=== PATIENT | male | born 1945 | race Caucasian/White ===

== ENCOUNTER 2025-09-04 15:33 | Inpatient (IN) ==
[2025-09-04 16:49] LABS: Hematocrit (blood only) 41.5 % (42.0-52.0); Hemoglobin 13.9 g/dL (14.0-18.0); Immature Granulocytes # (auto) 0.05 K/uL (0.01-0.20); Immature Granulocytes % (auto) 0.4 %; Mean Corpuscular Hemoglobin 29.1 pg (25.0-34.0); Mean Corpuscular Volume 86.8 fL (80.0-100.0); Platelet Count 475 K/uL (130-400); RDW Standard Deviation 42.5 fL (36.4-46.3); Red Blood Count 4.78 M/uL (4.70-6.10); White Blood Count 12.16 K/ul (4.8-10.8)
[2025-09-04] MEDS: SODIUM CHLORIDE 0.9% 1,000 ML IV ONE ×2 (17:02→22:00)
[2025-09-04 17:06] LABS: Alanine Aminotransferase 131.0 U/L (7-52); Albumin Globulin Ratio 1.0 (0.9-2); Albumin Level 3.6 gm/dl (3.4-5.0); Alkaline Phosphatase 335.0 U/L (34-104); Anion Gap 9.0 (3-11); Bilirubin,Total 0.6 mg/dl (0.2-1.0); Blood Urea Nitrogen 27.0 mg/dl (6-23); Calcium 9.4 mg/dl (8.6-10.3); Carbon Dioxide 25.0 mmol/L (21-32); Chloride 103.0 mmol/L (98-107); Creatinine Clr Calc Pharmacy 71.9 ml/min; Globulin 3.7 gm/dl (2.5-4.0); Glucose 134.0 mg/dl (70-99(Fasting)); Magnesium 2.0 mg/dl (1.7-2.4); Potassium 4.6 mmol/L (3.5-5.1); Sodium 137.0 mmol/L (136-145); Total Protein 7.3 gm/dl (6.0-8.3)
[2025-09-04 17:32] LABS: Influenza A virus by PCR Negative (Neg); Influenza B virus by PCR Negative (Neg); SARS CoV2 RNA(COVID-19) Ceph NEGATIVE (Negative)
--- NOTE | 2025-09-04 17:34 | XRay Report ---
Chest radiograph, one view History: Bronchitis Comparison: None Findings: Single AP view of the chest performed. No focal consolidation or pleural effusion. No pneumothorax. The cardiomediastinal silhouette is within normal limits. Normal pulmonary vascularity. No evidence for lymphadenopathy. No visualized bony or soft tissue abnormality. Impression: Normal chest radiograph Electronically signed by Nathanael Esparza 09-04-2025 5:33 PM
[2025-09-04] MEDS: ACETAMINOPHEN 1,000 MG/100 ML VIAL IV STA (17:48)
[2025-09-04] MEDS: HEPARIN SOD (PORCINE) 1000 UNIT/ML IV ONE (19:24)
[2025-09-04] MEDS: STAT IV Infusion **Titration per Protocol STA (19:24)
--- NOTE | 2025-09-04 19:29 | History & Physical Report ---
Date of Service September 04, 2025 Assessment & Plan (1) Atrial flutter: Plan: Assessment and plan below following discussion of case with ED provider and reviewing patient history/pertinent normal/abnormal diagnostic test results. Rapid atrial flutter New onset Possibly secondary to sepsis from complicated bronchitis Patient converted to NSR following initial intervention at the ER hx CAD status post stent hypertension, stable hyperlipidemia, on statin Rx Transaminitis, patient without abdominal pain complaints, denies recent EtOH intake Hyperglycemia rule out DM GERD, on PPI ongoing tobacco abuse Admit to PCU Beta-britton for rate control TTE, Cardiology consult re: new onset atrial flutter (ED provider already in touch with Dr. Chowdary who initially recommended starting beta-britton for rate control and initiating IV heparin for anticoagulation.) CS, doxycycline in place of Augmentin for complicated bronchitis/possible atypical pneumonia Consider CT chest to rule out PE or lobar pneumonia if with hypoxemia or temperature elevation. Follow LFTs, liver ultrasound if with progression, hold statin for now Check hemoglobin A1c Nicotine patch. DVT prophylaxis. IV heparin Full code Text document was generated using [employer] voice recognition software. It may contain grammatical or spelling errors. Kindly contact undersigned for clarification of any documentation item in question. History of Present Illness Chief Complaint: Shortness of breath Primary Care Provider: PCP : Umu Jenkins PA-C Liquefaction And Regasification Helper : Dr. Mccoy of [facility] History obtained from patient and records. Medical history significant for CAD status post stent, hypertension, hyperlipide dilip, GERD, ongoing tobacco abuse. Patient not feeling well for about a week. Cough symptoms today are productive of junky green sputum. Denies aspiration. Malaise, chills, weakness at home. Achy headache symptoms from coughing. Denies abdominal pain or bleeding concerns. Not sure about sick contacts. Patient seen at urgent care center and prescribed Augmentin for possible bronchitis. Patient came to ER for worsening symptoms associated with shortness of breath. Denies chest pain, palpitations. Compliant with home medications. Denies OTC decongestant intake. Patient noted to be in rapid atrial flutter upon arrival at the ER, heart rate 140s. No prior episodes as per patient. IV Cardizem bolus followed by infusion initiated at the ER. IV heparin initiated at the ER. Patient subsequently converted to NSR. Medical History as above Surgical History : Skin cancer surgery, hernia repair, ankle fracture surgery Family History : DM Personal/Social history : 1 pack daily, occasional EtOH intake, [place] Allergies Allergy/AdvReac Type Severity Reaction Status Date / Time No Known Allergies Allergy Unverified 09/04/25 19:39 Home Medications Medication Instructions Recorded Confirmed Type albuterol sulfate 90 mcg/actuation 1 - 2 puff inhalation Q4 PRN as 09/04/25 09/04/25 History aerosol inhaler directed amoxicillin 875 mg-potassium 1 tab PO Q12 09/04/25 09/04/25 History clavulanate 125 mg tablet indomethacin 50 mg capsule 50 mg PO TID PRN gout attack 09/04/25 09/04/25 History lisinopril 20 mg tablet 20 mg PO HS 09/04/25 09/04/25 History pantoprazole 40 mg tablet,delayed 40 mg PO HS 09/04/25 09/04/25 History release rosuvastatin 20 mg tablet 20 mg PO HS 09/04/25 09/04/25 History Past Med/Surg History Problem List (Updated 09/04/25 @ 20:39 by Ankur Mena DO) Atrial flutter (Acute) Social History Smoking Status: Current every day smoker Tobacco Type: Cigarettes Cigarettes Per Day: 20; Second Hand Exposure: No; Do You Dip or Chew Tobacco: No; Tobacco Cessation Education Requested by Patient: No Hx Alcohol Use: Yes Alcohol type: beer Hx Substance Use: No Preferred Language: Lithuanian Current Living Situation: Family Current Living Situation Comment: significant other Other Information That Helps Us Care for You: No Feels Safe at Home: Yes Safety Concerns: Feels Safe At This Time Assistive Devices: Glasses Review of Systems Review of Systems: As per HPI, all other systems reviewed and negative Physical Exam Physical Exam: GENERAL: Comfortable, pleasant, no respiratory distress SKIN: Normal color, warm HEENT: Towel over patient's forehead, pink palpebral conjunctivae, no ptosis, dry buccal mucosa NECK : Supple, no tenderness CHEST : Decreased breath sounds, no tenderness HEART : RRR, no obvious murmurs ABDOMEN: no distention, nontender EXTREMITIES : No LE swelling/tenderness, palpable pulses, no other conspicuous deformities noted NEUROLOGIC : Coherent, no facial asymmetry, no other gross focality Results & Data Results & Data Vital Signs (Past 12 Hours) Vital Signs Temp Pulse Pulse Resp BP BP Pulse Ox 09/04/25 19:00 143 H 24 130/101 H 95 09/04/25 18:45 144 H 20 125/104 H 94 09/04/25 18:30 144 H 20 113/82 96 09/04/25 18:30 145 H 24 113/82 94 09/04/25 18:15 145 H 22 126/104 H 93 09/04/25 18:15 144 H 22 126/104 H 94 09/04/25 18:01 144 H 22 134/90 94 09/04/25 17:45 146 H 22 129/104 H 94 09/04/25 17:30 144 H 24 126/100 96 09/04/25 17:30 145 H 24 126/100 95 09/04/25 17:18 144 H 20 129/91 94 09/04/25 17:05 36.7 C 09/04/25 16:51 145 H 09/04/25 16:30 145 H 22 130/101 H 94 09/04/25 16:29 145 H 09/04/25 15:51 145 H 20 130/101 H 95 09/04/25 15:44 37.3 C 144 H 20 125/78 93 O2 Del Method 09/04/25 19:00 Room Air 09/04/25 18:45 Room Air 09/04/25 18:30 Room Air 09/04/25 18:30 Room Air 09/04/25 18:15 Room Air 09/04/25 18:15 Room Air 09/04/25 18:01 Room Air 09/04/25 17:45 Room Air 09/04/25 17:30 Room Air 09/04/25 17:30 Room Air 09/04/25 17:18 Room Air 09/04/25 17:05 09/04/25 16:51 09/04/25 16:30 Room Air 09/04/25 16:29 09/04/25 15:51 Room Air 09/04/25 15:44 Room Air Laboratory Results Laboratory Results WBC 12.16 K/ul (4.8-10.8) H 09/04/25 16:25 RBC 4.78 M/uL (4.70-6.10) 09/04/25 16:25 Hgb 13.9 g/dL (14.0-18.0) L 09/04/25 16:25 Hct 41.5 % (42.0-52.0) L 09/04/25 16: MCV 86.8 fL (80.0-100.0) 09/04/25 16: MCH 29.1 pg (25.0-34.0) 09/04/25 16: MCHC 33.5 g/dL (32.0-36.0) 09/04/25 16: RDW Std Deviation 42.5 fL (36.4-46.3) 09/04/25 16: RDW Coeff of Yahaira 13.3 % (11.5-14.5) 09/04/25 16: Plt Count 475 K/uL (130-400) H 09/04/25 16: MPV 9.4 fL (9.4-12.4) 09/04/25 16: Immature Gran % (Auto) 0.4 % 09/04/25 16: Neut % (Auto) 70.3 % 09/04/25 16:25 Lymph % (Auto) 18.0 % 09/04/25 16:25 [place] % (Auto) 9.7 % 09/04/25 16:25 Eos % (Auto) 1.2 % 09/04/25 16: Baso % (Auto) 0.4 % 09/04/25 16: Neut # (Auto) 8.55 K/uL (1.40-6.50) H 09/04/25 16:25 Lymph # (Auto) 2.19 K/uL (1.20-3.40) 09/04/25 16:25 [place] # (Auto) 1.18 K/uL (0.11-0.59) H 09/04/25 16:25 Eos # (Auto) 0.14 K/uL (0.00-0.50) 09/04/25 16:25 Baso # (Auto) 0.05 K/uL (0.00-0.20) 09/04/25 16: Immature Gran # (Auto) 0.05 K/uL (0.01-0.20) 09/04/25 16:25 Sodium 137 mmol/L (136-145) 09/04/25 16:25 Potassium 4.6 mmol/L (3.5-5.1) 09/04/25 16:25 Chloride 103 mmol/L (98-107) 09/04/25 16:25 Carbon Dioxide 25 mmol/L (21-32) 09/04/25 16:25 Anion Gap 9 (3-11) 09/04/25 16:25 BUN 27 mg/dl (6-23) H 09/04/25 16:25 Creatinine 0.86 mg/dl (0.6-1.4) 09/04/25 16:25 Est Cr Clr Drug Dosing 71.9 ml/min 09/04/25 16:25 eGFR 88.08 09/04/25 16:25 BUN/Creatinine Ratio 31.4 (10-20) H 09/04/25 16:25 Glucose 134 mg/dl (70-99(Fasting)) H 09/04/25 16:25 Lactate 1.4 mmol/L (0.4-2.0) 09/04/25 16:56 Calcium 9.4 mg/dl (8.6-10.3) 09/04/25 16:25 Magnesium 2.0 mg/dl (1.7-2.4) 09/04/25 16:25 Total Bilirubin 0.6 mg/dl (0.2-1.0) 09/04/25 16:25 AST 64 U/L (13-39) H 09/04/25 16:25 ALT 131 U/L (7-52) H 09/04/25 16:25 Alkaline Phosphatase 335 U/L (34-104) H 09/04/25 16:25 Troponin I High Sens 14.2 pg/ml (0-20) 09/04/25 16:25 Total Protein 7.3 gm/dl (6.0-8.3) 09/04/25 16:25 Albumin 3.6 gm/dl (3.4-5.0) 09/04/25 16:25 Globulin 3.7 gm/dl (2.5-4.0) 09/04/25 16:25 Albumin/Globulin Ratio 1.0 (0.9-2) 09/04/25 16:25 SARS-CoV-2 (PCR) NEGATIVE (Negative) 09/04/25 16:25 Influenza Type A (PCR) Negative (Neg) 09/04/25 16:25 Influenza Type B (PCR) Negative (Neg) 09/04/25 16:25 RSV (RT-PCR) Negative (Neg) 09/04/25 16:25 Impressions Chest X-Ray 09/04/25 15:50 Chest radiograph, one view History: Bronchitis Comparison: None Findings: Single AP view of the chest performed. No focal consolidation or pleural effusion. No pneumothorax. The cardiomediastinal silhouette is within normal limits. Normal pulmonary vascularity. No evidence for lymphadenopathy. No visualized bony or soft tissue abnormality. Impression: Normal chest radiograph Electronically signed by Nathanael Esparza 09-04-2025 5:33 PM Diagnostic Findings EKG as per my interpretation :Rate 140, atrial flutter, normal axis, T wave inversion lateral leads
[2025-09-04] MEDS: METOPROLOL TARTRATE 1 MG/ML VIAL IV STA (19:37)
[2025-09-04] MEDS: Heparin IV Adult Wt-Based Standard w/ INITIAL Bolus Protocol IV STA (19:43)
[2025-09-04] MEDS: HEPARIN 25000 UNIT/500 ML D5W 25,000 UNITS/500 ML BAG IV SCH (19:43)
[2025-09-04 19:59] LABS: INR 1.1 (0.9-1.1); Prothrombin Time 12.0 Seconds (9.0-12.0)
[2025-09-04 20:04] LABS: Thyroid Stimulating Hormone 1.427 uIu/ml (0.300-4.500)
[2025-09-04] MEDS ORDERED: PROMETHAZINE 6.25 MG/50.25 ML BAG IV PRN (20:13)
[2025-09-04] MEDS ORDERED: ACETAMINOPHEN 500 MG TAB PO PRN (20:13)
--- NOTE | 2025-09-04 20:39 | Emergency Department Note ---
Impression & Plan Atrial flutter ED Provider Note Diagnosis: Atrial flutter with RVR Disposition: Admission CHIEF COMPLAINT: Generalized weakness HPI: Patient is a 80-year-old male presenting with 1 week of upper respiratory tract infection. Patient went to family doctor 1 week ago and was started on Augmentin. Patient states he feels like he is getting worse and has no energy and is very tired. Patient denies any active fevers or chills. Patient denies any chest pain. Patient upon triage was found to have heart rate of 140 bpm atrial flutter. 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 and he follows up once a year in [place]. Patient states prior cardiac stents but does not remember being told he is A-fib or a flutter previously. PAST MEDICAL HISTORY: See Below PAST SURGICAL HISTORY: See Below SOCIAL HISTORY: See Below HOME MEDICATIONS: See Below ALLERGIES: See Below VITALS: See Below PHYSICAL EXAMINATION: GENERAL: Severe distress EYE EXAM: Normal conjunctiva. OROPHARYNX: Moist mucus membranes. Grossly normal dentition. NECK: Supple, LUNGS: Clear to auscultation. Normal chest wall mechanics. HEART: Tachycardia ABDOMEN: Abdomen soft, non-tender, normo-active bowel sounds, no masses, no rebound or guarding BACK: No CVA TTP. SKIN: No rashes and no bruising. UPPER EXTREMITIES: Upper extremities are grossly normal LOWER EXTREMITIES: Grossly normal, no edema. NEURO EXAM: A&O x3,, normal speech, moves all 4 extremities PSYCH: Cooperative MEDICAL DECISION MAKING: Reviewed external documents: No documents in our system History obtained from: Patient and ER Course: Patient is a 80-year-old male presenting with complaint of generalized weakness. Patient is being treated for URI symptoms for 1 week's time with Augmentin. Patient feels like he is very tired weak and has no energy. Patient not having any active chest pain. Patient's EKG shows in a flutter with rapid response. Patient does not have an elevated lactate there is no pneumonia on chest x-ray. Concern was had with patient maybe being septic causing the A-flutter due to potential pneumonia. This was not present. Patient was given IV fluids and started on Cardizem after being given a bolus. Patient's Cardizem was titrated upwards from 5-10 and then 15. Patient was maintained on Cardizem at 15 for over an hour's time without any change in heart rate. Patient's blood pressure stayed stable over 100 systolic throughout ER course. Patient's case discussed with cardiology team for further recommendations and encouraged to use Lopressor and beta-blockers. Patient was admitted to the hospital service. After discussion with the hospital service I went to check on the patient and he had broke into a sinus rhythm. Patient had EKG performed which shows normal sinus rhythm no ST segment elevations or depressions. Discussion was had with hospitalist service about him being back in a sinus rhythm and they are okay with keeping him for observation overnight and to continue the heparin drip at this time. Labs (independently interpreted) are significant for: Lactate not elevated Imaging results (independently interpreted): Chest x-ray negative for pneumonia EKG interpretation (independently interpreted): A-flutter with rapid response no ST segment ovation or depression Medications given: Cardizem bolus and drip, normal saline bolus, heparin drip Consultants: Battalion Fire Chief Dr. Chowdary, discussed patient's persistent A-flutter even though he is on 15 of Cardizem continuously. Recommends adding 5 of IV Lopressor metoprolol 25 3 times daily and anticoagulation. If patient's blood pressure maintains then continue with this plan and will plan for JENNY cardioversion tomorrow. Hospitalist service Triage Nursing notes reviewed and agree them. Vital Signs: reviewed and remarkable for: Tachycardia Critical care time 45 minutes, this does not include time for procedures Past Med/Surg History Problem List (Updated 09/04/25 @ 20:39 by Ankur Mena DO) Atrial flutter (Acute) Social History Smoking Status: Never smoker Preferred Language: Spanish Feels Safe at Home: Yes Allergies Allergies Allergy/AdvReac Type Severity Reaction Status Date / Time No Known Allergies Allergy Unverified 09/04/25 19:39 Home Meds Home Medications Medication Instructions Recorded Confirmed albuterol sulfate 90 mcg/actuation 1 - 2 puff inhalation Q4 PRN as 09/04/25 09/04/25 aerosol inhaler directed amoxicillin 875 mg-potassium 1 tab PO Q12 09/04/25 09/04/25 clavulanate 125 mg tablet indomethacin 50 mg capsule 50 mg PO TID PRN gout attack 09/04/25 09/04/25 lisinopril 20 mg tablet 20 mg PO HS 09/04/25 09/04/25 pantoprazole 40 mg tablet,delayed 40 mg PO HS 09/04/25 09/04/25 release rosuvastatin 20 mg tablet 20 mg PO HS 09/04/25 09/04/25 Results & Data (ED) Vital Signs Vital Signs - 24 hr 09/04/25 15:44 09/04/25 15:51 09/04/25 16:29 Temperature 37.3 C Temperature Source Temporal Artery Scan Pulse Rate 144 H 145 H Pulse Rate [Apical] 145 H Respiratory Rate 20 20 Respiratory Effort / Characteristics Non-Labored Spontaneous Respiratory Depth Normal Respiratory Pattern Regular Blood Pressure 125/78 Blood Pressure [Left Arm] 130/101 H Blood Pressure Mean 93 Blood Pressure Mean [Left Arm] 110 Blood Pressure Position Sitting Blood Pressure Position [Left Arm] Sitting Pulse Oximetry 93 95 Oxygen Delivery Method Room Air Room Air Sepsis Recent Fever Within 48 Hours No Sepsis New/Unexplained Change in Mental Status No Sepsis Action Taken by Nursing No Action Required 09/04/25 16:30 09/04/25 16:51 09/04/25 17:05 Temperature 36.7 C Temperature Source Oral Pulse Rate 145 H 145 H Pulse Rate [Apical] Respiratory Rate 22 Respiratory Effort / Characteristics Respiratory Depth Respiratory Pattern Blood Pressure 130/101 H Blood Pressure [Left Arm] Blood Pressure Mean 106 Blood Pressure Mean [Left Arm] Blood Pressure Position Blood Pressure Position [Left Arm] Pulse Oximetry 94 Oxygen Delivery Method Room Air Sepsis Recent Fever Within 48 Hours Sepsis New/Unexplained Change in Mental Status Sepsis Action Taken by Nursing 09/04/25 17:18 09/04/25 17:30 09/04/25 17:30 Temperature Temperature Source Pulse Rate 144 H 145 H 144 H Pulse Rate [Apical] Respiratory Rate 20 24 24 Respiratory Effort / Characteristics Respiratory Depth Respiratory Pattern Blood Pressure 129/91 126/100 126/100 Blood Pressure [Left Arm] Blood Pressure Mean 108 113 113 Blood Pressure Mean [Left Arm] Blood Pressure Position Blood Pressure Position [Left Arm] Pulse Oximetry 94 95 96 Oxygen Delivery Method Room Air Room Air Room Air Sepsis Recent Fever Within 48 Hours Sepsis New/Unexplained Change in Mental Status Sepsis Action Taken by Nursing 09/04/25 17:45 09/04/25 18:01 09/04/25 18:15 Temperature Temperature Source Pulse Rate 146 H 144 H 144 H Pulse Rate [Apical] Respiratory Rate 22 22 22 Respiratory Effort / Characteristics Respiratory Depth Respiratory Pattern Blood Pressure 129/104 H 134/90 126/104 H Blood Pressure [Left Arm] Blood Pressure Mean 111 94 107 Blood Pressure Mean [Left Arm] Blood Pressure Position Blood Pressure Position [Left Arm] Pulse Oximetry 94 94 94 Oxygen Delivery Method Room Air Room Air Room Air Sepsis Recent Fever Within 48 Hours Sepsis New/Unexplained Change in Mental Status Sepsis Action Taken by Nursing 09/04/25 18:15 09/04/25 18:30 09/04/25 18:30 Temperature Temperature Source Pulse Rate 145 H 145 H 144 H Pulse Rate [Apical] Respiratory Rate 22 24 20 Respiratory Effort / Characteristics Respiratory Depth Respiratory Pattern Blood Pressure 126/104 H 113/82 113/82 Blood Pressure [Left Arm] Blood Pressure Mean 107 106 106 Blood Pressure Mean [Left Arm] Blood Pressure Position Blood Pressure Position [Left Arm] Pulse Oximetry 93 94 96 Oxygen Delivery Method Room Air Room Air Room Air Sepsis Recent Fever Within 48 Hours Sepsis New/Unexplained Change in Mental Status Sepsis Action Taken by Nursing 09/04/25 18:45 09/04/25 19:00 09/04/25 19:49 Temperature Temperature Source Pulse Rate 144 H 143 H Pulse Rate [Apical] 73 Respiratory Rate 20 24 22 Respiratory Effort / Characteristics Non-Labored Spontaneous Respiratory Depth Normal Respiratory Pattern Regular Blood Pressure 125/104 H 130/101 H Blood Pressure [Left Arm] 132/93 Blood Pressure Mean 108 107 Blood Pressure Mean [Left Arm] 106 Blood Pressure Position Blood Pressure Position [Left Arm] Pulse Oximetry 94 95 95 Oxygen Delivery Method Room Air Room Air Room Air Sepsis Recent Fever Within 48 Hours Sepsis New/Unexplained Change in Mental Status Sepsis Action Taken by Nursing Laboratory Data 09/04/25 16:25 09/04/25 16:25 Lab Results 09/04/25 09/04/25 Range/Units 16:25 16:56 WBC 12.16 H (4.8-10.8) K/ul RBC 4.78 (4.70-6.10) M/uL Hgb 13.9 L (14.0-18.0) g/dL Hct 41.5 L (42.0-52.0) % MCV 86.8 (80.0-100.0) fL MCH 29.1 (25.0-34.0) pg MCHC 33.5 (32.0-36.0) g/dL RDW Std Deviation 42.5 (36.4-46.3) fL RDW Coeff of Yahaira 13.3 (11.5-14.5) % Plt Count 475 H (130-400) K/uL MPV 9.4 (9.4-12.4) fL Immature Gran % (Auto) 0.4 % Neut % (Auto) 70.3 % Lymph % (Auto) 18.0 % [place] % (Auto) 9.7 % Eos % (Auto) 1.2 % Baso % (Auto) 0.4 % Neut # (Auto) 8.55 H (1.40-6.50) K/uL Lymph # (Auto) 2.19 (1.20-3.40) K/uL [place] # (Auto) 1.18 H (0.11-0.59) K/uL Eos # (Auto) 0.14 (0.00-0.50) K/uL Baso # (Auto) 0.05 (0.00-0.20) K/uL Immature Gran # (Auto) 0.05 (0.01-0.20) K/uL PT 12.0 (9.0-12.0) Seconds INR 1.1 (0.9-1.1) Sodium 137 (136-145) mmol/L Potassium 4.6 (3.5-5.1) mmol/L Chloride 103 (98-107) mmol/L Carbon Dioxide 25 (21-32) mmol/L Anion Gap 9 (3-11) BUN 27 H (6-23) mg/dl Creatinine 0.86 (0.6-1.4) mg/dl Est Cr Clr Drug Dosing 71.9 ml/min eGFR 88.08 BUN/Creatinine Ratio 31.4 H (10-20) Glucose 134 H (70-99(Fasting)) mg/dl Lactate 1.4 (0.4-2.0) mmol/L Calcium 9.4 (8.6-10.3) mg/dl Magnesium 2.0 (1.7-2.4) mg/dl Total Bilirubin 0.6 (0.2-1.0) mg/dl AST 64 H (13-39) U/L ALT 131 H (7-52) U/L Alkaline Phosphatase 335 H (34-104) U/L Troponin I High Sens 14.2 (0-20) pg/ml Total Protein 7.3 (6.0-8.3) gm/dl Albumin 3.6 (3.4-5.0) gm/dl Globulin 3.7 (2.5-4.0) gm/dl Albumin/Globulin Ratio 1.0 (0.9-2) TSH 1.427 (0.300-4.500) uIu/ml SARS-CoV-2 (PCR) NEGATIVE (Negative) Influenza Type A (PCR) Negative (Neg) Influenza Type B (PCR) Negative (Neg) RSV (RT-PCR) Negative (Neg) Administered Medications Heparin Sodium/Dextrose (Heparin 85310 Unit/500 Ml D5w) 25,000 units in 500 mls @ 28 mls/hr IV .[id number] [facility]; Protocol Stop: 10/04/25 19:29 Last Admin: 09/04/25 19:43 Dose: 1,400 units/hr, 28 mls/hr Documented By: ALBAN Co-signed By: [facility] Discontinued Medications Diltiazem HCl (Diltiazem Hcl 5 Mg/Ml 5 Ml Vial) 15 mg IV NOW STA Stop: 09/04/25 16:57 Last Admin: 09/04/25 17:02 Dose: 15 mg Documented By: QGV Co-signed By: ALBAN Heparin Sodium (Porcine) (Heparin Sod (Porcine) 1000 Unit/Ml) 1 units IV NOW ONE Stop: 09/04/25 19:30 Last Admin: 09/04/25 19:47 Dose: 6,000 units Documented By: ALBAN Co-signed By: [facility] Heparin Sodium/Dextrose (Heparin Iv Adult Wt-Based Standard W/ Initial Bolus Protocol) 1 each IV NOW STA; Protocol Stop: 09/04/25 19:14 Last Admin: 09/04/25 19:43 Dose: Not Given Documented By: ALBAN Sodium Chloride (Nss) 1,000 mls @ 999 mls/hr IV .Q1H1M ONE Stop: 09/04/25 17:55 Last Infusion: 09/04/25 18:03 Dose: Infused Documented By: Admin: 09/04/25 17:02 Dose: 999 mls/hr Documented By: QGV Diltiazem HCl 125 mg/ Dextrose 125 mls @ 15 mls/hr IV .[id number] [facility]; Protocol Stop: 10/04/25 16:59 Last Admin: 09/04/25 18:14 Dose: 15 mg/hr, 15 mls/hr Documented By: QGV Co-signed By: GUSTAVO Titration: 09/04/25 18:14 Dose: Infused Documented By: QGV Co-signed By: GUSTAVO Admin: 09/04/25 17:56 Dose: 10 mg/hr, 10 mls/hr Documented By: QGV Co-signed By: GENEVA Titration: 09/04/25 17:56 Dose: Infused Documented By: QGV Co-signed By: GENEVA Admin: 09/04/25 17:27 Dose: 5 mg/hr, 5 mls/hr Documented By: QGV Co-signed By: CAP Acetaminophen (Ofirmev) 1,000 mg in 100 mls @ 400 mls/hr IV NOW STA Stop: 09/04/25 17:50 Last Infusion: 09/04/25 18:03 Dose: Infused Documented By: Admin: 09/04/25 17:48 Dose: 400 mls/hr Documented By: QGV Metoprolol Tartrate (Metoprolol Tartrate 1 Mg/Ml Vial) 5 mg IV NOW STA Stop: 09/04/25 19:07 Last Admin: 09/04/25 19:37 Dose: Not Given Documented By: ALBAN Miscellaneous (Stat Iv Infusion Titration Per Protocol) 1 each N/A NOW STA Stop: 09/04/25 16:57 Last Admin: 09/04/25 19:24 Dose: Not Given Documented By: ALBAN Imaging Data Radiologist's Impression: Chest X-Ray 09/04/25 15:50 Chest radiograph, one view History: Bronchitis Comparison: None Findings: Single AP view of the chest performed. No focal consolidation or pleural effusion. No pneumothorax. The cardiomediastinal silhouette is within normal limits. Normal pulmonary vascularity. No evidence for lymphadenopathy. No visualized bony or soft tissue abnormality. Impression: Normal chest radiograph Electronically signed by Nathanael Esparza 09-04-2025 5:33 PM Discharge Plan Visit Data Chief Complaint: Illness Stated Complaint: WEAK SHAKING SORE THROAT COUGH ED Provider: Ankur Mena Discharge Problem: Atrial flutter Patient Disposition: Admitted As Inpatient Condition: Serious Discharge Instructions Interventions: ED Discharge Assessment Last Done: 09/04/25 20:18 Forms Stand Alone Forms: [employer] [facility] Prescriptions Prescriptions: No Action amoxicillin-pot clavulanate 875-125 mg tablet 1 tab PO Q12 Rx Instructions: ordered 08/28/25 to take for 10 days lisinopril 20 mg tablet 20 mg PO HS pantoprazole 40 mg tablet,delayed release (DR/EC) 40 mg PO HS rosuvastatin 20 mg tablet 20 mg PO HS indomethacin 50 mg capsule 50 mg PO TID PRN (Reason: gout attack) Rx Instructions: take for 5 days for each gout attack albuterol sulfate 90 mcg/actuation HFA aerosol inhaler 1 - 2 puff INHALATION Q4 PRN (Reason: as directed) Referrals Referrals: Umu Jenkins PA-C [Primary Care Provider] -
[2025-09-04] MEDS ORDERED: ROSUVASTATIN CALCIUM 20 MG TAB PO SCH (21:00)
[2025-09-04] MEDS ORDERED: PNEUMOCOCCAL VACCINE (PCV20) 20-VAL CONJ-DIP CRM/PF 0.5 ML SYR IM ONE (21:41)
[2025-09-04 21:53] LABS: Partial Thromboplastin Time 28 Seconds (21-31)
[2025-09-04] MEDS: DOXYCYCLINE HYCLATE 100 MG in DEXTROSE 5% MINI-B 100 ML IV ONE (22:00)
[2025-09-04] MEDS: METOPROLOL TARTRATE 25 MG TAB PO SCH (22:26)
[2025-09-05 02:40] LABS: ANTI-Xa, UFH(UnfractionatedHep 0.21 IU/ml (0.3-0.7)
[2025-09-05] MEDS: ASPIRIN 81 MG ECTAB PO SCH (08:00)
[2025-09-05] MEDS: DOXYCYCLINE HYCLATE 100 MG CAP PO SCH (08:00)
[2025-09-05 08:39] LABS: Hemoglobin A1C 6.2 % (4.5-5.6)
[2025-09-05 08:42] LABS: Hematocrit (blood only) 35.7 % (42.0-52.0); Hemoglobin 11.5 g/dL (14.0-18.0); Immature Granulocytes # (auto) 0.07 K/uL (0.01-0.20); Immature Granulocytes % (auto) 0.8 %; Mean Corpuscular Hemoglobin 28.3 pg (25.0-34.0); Mean Corpuscular Volume 87.9 fL (80.0-100.0); Platelet Count 370 K/uL (130-400); RDW Standard Deviation 43.5 fL (36.4-46.3); Red Blood Count 4.06 M/uL (4.70-6.10); White Blood Count 8.73 K/ul (4.8-10.8)
[2025-09-05 08:58] LABS: Alanine Aminotransferase 103.0 U/L (7-52); Albumin Globulin Ratio 1.3 (0.9-2); Albumin Level 3.3 gm/dl (3.4-5.0); Alkaline Phosphatase 266.0 U/L (34-104); Anion Gap 7.0 (3-11); Bilirubin,Total 0.5 mg/dl (0.2-1.0); Blood Urea Nitrogen 25.0 mg/dl (6-23); Calcium 8.4 mg/dl (8.6-10.3); Carbon Dioxide 24.0 mmol/L (21-32); Chloride 106.0 mmol/L (98-107); Creatinine Clr Calc Pharmacy 89.6 ml/min; Globulin 2.6 gm/dl (2.5-4.0); Glucose 166.0 mg/dl (70-99(Fasting)); Potassium 4.2 mmol/L (3.5-5.1); Sodium 137.0 mmol/L (136-145); Total Protein 5.9 gm/dl (6.0-8.3)
[2025-09-05] MEDS: METOPROLOL TARTRATE 25 MG TAB PO STA (09:00)
[2025-09-05 09:16] LABS: ANTI-Xa, UFH(UnfractionatedHep 0.19 IU/ml (0.3-0.7)
[2025-09-05] MEDS: HEPARIN SOD (PORCINE) 1000 UNIT/ML IV ONE (09:45)
--- NOTE | 2025-09-05 10:08 | Electrocardiogram Report ---
Test Reason : Blood Pressure : */* mmHG Vent. Rate : 145 BPM Atrial Rate : 290 BPM P-R Int : * ms QRS Dur : 86 ms QT Int : 288 ms P-R-T Axes : -85 36 174 degrees QTcB Int : 447 ms Probable Atrial flutter with 2:1 A-V conduction Septal infarct , age undetermined Abnormal ECG No previous ECGs available Confirmed by Salvador Rodriguez ([id number]) on 09/05/2025 10:07:47 AM Referred By: REFERRED SELF Confirmed By: Salvador Rodriguez
--- NOTE | 2025-09-05 11:22 | Cardiology Consultation ---
Date of Consultation September 05, 2025 Assessment & Plan (1) Pericardial effusion with cardiac tamponade: (2) Atrial flutter: (3) CAD (coronary artery disease), [place] coronary artery: (4) HTN (hypertension): (5) Left ventricular hypertrophy: Plan 80-year-old male admitted with atrial flutter and rapid ventricular response. Echocardiogram revealing large circumferential pericardial effusion with tamponade physiology. Recommend to hold anticoagulation. Risk, benefit, and alternatives to pericardiocentesis discussed. Patient agreeable to proceed. Titrate metoprolol to 50 mg twice daily. Repeat limited resting 2D transthoracic echocardiogram in a.m. 09/06/2025 for reevaluation of pericardial fluid. Consider restarting anticoagulation pending review of repeat echocardiogram. Consider cardiac MRI for further evaluation of left ventricular hypertrophy as outpatient. Outpatient electrophysiology consultation. Pedro Chowdary DO, [facility] History of Present Illness Reason for Consultation: Atrial flutter Requesting Physician: Dr. Stover Attending Physician: Paulo Duenas DO History of Present Illness 80-year-old male with history of multivessel coronary disease and multivessel PCI as described below presented to the emergency department with generalized weakness. Reported 1 week history of upper respiratory tract infection. In ER triage she was found have a heart rate of 140 bpm. ECG confirming atrial flutter with 2-1 conduction. Previous history of atrial fibrillation or flutter denied. Patient treated with IV diltiazem, IV Lopressor, and oral Lopressor in the emergency department. He subsequently converted to normal sinus rhythm last evening. Denies recent exertional chest discomfort or heaviness. Shortness of breath attributed to COPD and acute bronchitis. Preliminary review of bedside echocardiogram demonstrates severe concentric left ventricular hypertrophy with a large circumferential pericardial effusion. There is evidence of tamponade physiology with RA, LA, and RV diastolic compression. The inferior vena cava is dilated with reduced collapsibility suggesting right atrial pressure of 15 mmHg. Allergies Allergy/AdvReac Type Severity Reaction Status Date / Time No Known Allergies Allergy Unverified 09/04/25 19:39 Home Medications Medication Instructions Recorded Confirmed Type albuterol sulfate 90 mcg/actuation 1 - 2 puff inhalation Q4 PRN as 09/04/25 09/04/25 History aerosol inhaler directed amoxicillin 875 mg-potassium 1 tab PO Q12 09/04/25 09/04/25 History clavulanate 125 mg tablet indomethacin 50 mg capsule 50 mg PO TID PRN gout attack 09/04/25 09/04/25 History lisinopril 20 mg tablet 20 mg PO HS 09/04/25 09/04/25 History pantoprazole 40 mg tablet,delayed 40 mg PO HS 09/04/25 09/04/25 History release rosuvastatin 20 mg tablet 20 mg PO HS 09/04/25 09/04/25 History Patient History Social History Smoking Status: Current every day smoker Tobacco Type: Cigarettes Cigarettes Per Day: 20; Second Hand Exposure: No; Do You Dip or Chew Tobacco: No; Tobacco Cessation Education Requested by Patient: No Hx Alcohol Use: Yes Alcohol type: beer Hx Substance Use: No Preferred Language: [place]i Communication Ability: Effective Current Living Situation: Family Current Living Situation Comment: significant other Other Information That Helps Us Care for You: No Feels Safe at Home: Yes Safety Concerns: Feels Safe At This Time Assistive Devices: None Review of Systems Review of Systems: All systems reviewed & are unremarkable except as noted in Subjective Physical Exam Constitutional: well nourished and + ill appearing Respiratory: no respiratory distress, no labored breathing and no retractions Auscultation: no crackles, no rales, no rhonchi and no wheezes Cardiovascular: Rate/Rhythm: regular rate and regular rhythm Heart Sounds: normal S1 and normal S2; no murmur Vessels: + JVD, femoral pulses present and radial pulses present Extremities: no edema Gastrointestinal (Abdomen): Inspection/Auscultation: abdomen normal to inspection; abdomen not distended Percussion/Palpation: abdomen soft; abdomen nontender, no guarding and abdomen not rigid Neurologic: CN's II-XI intact bilaterally and moves all extremities; no focal motor deficits Results & Data Vital Signs (Past 12 Hours) Vital Signs Temp Pulse Resp BP Pulse Ox O2 Del Method 09/05/25 09:55 Room Air 09/05/25 09:50 148/91 H 09/05/25 08:37 161/104 H 09/05/25 07:09 36.3 C L 79 18 155/105 H 94 Room Air 09/05/25 03:24 36.7 C 76 16 142/87 H 96 Room Air Laboratory Results Cardiac Enzymes 09/04/25 09/05/25 Range/Units 16:25 08:26 AST 64 H 46 H (13-39) U/L Troponin I High Sens 14.2 (0-20) pg/ml Coagulation 09/04/25 Range/Units 16:25 PT 12.0 (9.0-12.0) Seconds APTT 28 (21-31) Seconds CBC 09/04/25 09/05/25 Range/Units 16:25 08:26 WBC 12.16 H 8.73 (4.8-10.8) K/ul RBC 4.78 4.06 L (4.70-6.10) M/uL Hgb 13.9 L 11.5 L (14.0-18.0) g/dL Hct 41.5 L 35.7 L (42.0-52.0) % Plt Count 475 H 370 (130-400) K/uL Neut # (Auto) 8.55 H 6.59 H (1.40-6.50) K/uL Lymph # (Auto) 2.19 1.25 (1.20-3.40) K/uL [place] # (Auto) 1.18 H 0.72 H (0.11-0.59) K/uL Eos # (Auto) 0.14 0.07 (0.00-0.50) K/uL Baso # (Auto) 0.05 0.03 (0.00-0.20) K/uL Comprehensive Metabolic Panel 09/04/25 09/05/25 Range/Units 16:25 08:26 Sodium 137 137 (136-145) mmol/L Potassium 4.6 4.2 (3.5-5.1) mmol/L Chloride 103 106 (98-107) mmol/L Carbon Dioxide 25 24 (21-32) mmol/L BUN 27 H 25 H (6-23) mg/dl Creatinine 0.86 0.69 (0.6-1.4) mg/dl Glucose 134 H 166 H (70-99(Fasting)) mg/dl Calcium 9.4 8.4 L (8.6-10.3) mg/dl AST 64 H 46 H (13-39) U/L ALT 131 H 103 H (7-52) U/L Alkaline Phosphatase 335 H 266 H (34-104) U/L Total Protein 7.3 5.9 L (6.0-8.3) gm/dl Albumin 3.6 3.3 L (3.4-5.0) gm/dl Intake and Output 09/05/25 09/05/25 09/05/25 06:59 14:59 22:59 Intake Total 499.267 / 4144.617 8417.733 / 1665.733 Output Total 200 / 300 335 / 335 Balance 299.267 / 3513.152 9076.733 / 1330.733 Intake: IV 299.267 / 5970.316 2469.733 / 1425.733 Doxycycline Hyclate 100 mg In 100 / 100 Dextrose 5% Mini-B 100 ml @ 50 mls/hr IV 2030 ONE Rx#:[id number] Heparin 87738 Unit/500 ml D5w 199.267 / 199.267 300.733 / 300.733 25,000 units In 500 ml @ 1,500 UNITS/HR 30 mls/hr IV .[id number] [facility] Rx#:[id number] Sodium Chloride 0.9% 1,000 ml @ 1000 / 1000 75 mls/hr IV .[id number] ONE Rx#: [id number] dilTIAZem HCL 125 mg In 125 / 125 Dextrose 5% 100 ml @ 15 MG/HR 15 mls/hr IV .[id number] [facility] Rx#: [id number] Oral 200 / 320 240 / 240 Output: Urine 200 / 300 335 / 335 Other: Weight 85.5 kg Weight Measurement Method Built in [facility] Diagnostic Findings Cardiac catheterization report [facility] 08/30/2024: Coronary Findings Diagnostic Dominance: Right Left Anterior Descending: Previously placed Prox LAD to Mid LAD stent of unknown type is widely patent. Previously placed Mid LAD stent of unknown type is widely patent. First Diagonal Branch: The vessel is small. 1st Diag lesion is 90% paige nosed. Left Circumflex: Previously placed Prox Cx to Mid Cx stent of unknown type is widely patent. Right Coronary Artery: Ost RCA to Dist RCA lesion is 100% stenosed. The lesion is chronically occluded. The lesion was previously treated using a stent of unknown type. Right Posterior Descending Artery: RPDA filled by collaterals from Dist LAD. Recommendations: Maximal medical therapy. Risk factor modification. PG Care Time/CCT Total # of Minutes Spent Total Time Spent with Patient: Total time spent is greater than 50% in coordination of care (as documented) at patient's floor/unit and/or counseling patient: Coding Level of Care Code 74285 INT INP/OBS CARE 375MIN Diagnoses Pericardial effusion with cardiac tamponade I31.39; I31.4 Atrial flutter, unspecified type I48.92 Atrial flutter type: unspecified CAD (coronary artery disease), [place] coronary artery I25.10 Primary hypertension I10 Hypertension type: primary hypertension Left ventricular hypertrophy I51.7 (2) Atrial flutter Atrial flutter type: unspecified Qualified Code(s): I48.92 - Unspecified atrial flutter (4) HTN (hypertension) Hypertension type: primary hypertension Qualified Code(s): I10 - Essential (primary) hypertension
--- NOTE | 2025-09-05 12:05 | XCELERA ---
[id number] \\ISCV-G[facility]EL[facility]\ISCV_PDF_Reports\[id number]___[id number]
[2025-09-05] MEDS: NICOTINE 14 MG/24 HR PATCH TD SCH (13:21)
--- NOTE | 2025-09-05 13:48 | Pre Anesthesia Assessment ---
Date of Service September 05, 2025 Pre Sedation Assessment Vital Signs Temp Pulse Pulse Resp BP BP Pulse Ox 09/05/25 11:24 97.3 F L 75 18 154/95 H 94 09/05/25 09:55 09/05/25 09:50 148/91 H 09/05/25 08:37 161/104 H 09/05/25 07:09 97.3 F L 79 18 155/105 H 94 09/05/25 03:24 98.1 F 76 16 142/87 H 96 09/04/25 22:52 82 09/04/25 22:33 91 H 16 121/80 95 09/04/25 20:50 09/04/25 20:50 97.9 F 72 18 144/93 H 94 09/04/25 19:49 73 22 132/93 95 09/04/25 19:00 143 H 24 130/101 H 95 09/04/25 18:45 144 H 20 125/104 H 94 09/04/25 18:30 144 H 20 113/82 96 09/04/25 18:30 145 H 24 113/82 94 09/04/25 18:15 145 H 22 126/104 H 93 09/04/25 18:15 144 H 22 126/104 H 94 09/04/25 18:01 144 H 22 134/90 94 09/04/25 17:45 146 H 22 129/104 H 94 09/04/25 17:30 144 H 24 126/100 96 09/04/25 17:30 145 H 24 126/100 95 09/04/25 17:18 144 H 20 129/91 94 09/04/25 17:05 98.1 F 09/04/25 16:51 145 H 09/04/25 16:30 145 H 22 130/101 H 94 09/04/25 16:29 145 H 09/04/25 15:51 145 H 20 130/101 H 95 09/04/25 15:44 99.1 F 144 H 20 125/78 93 O2 Del Method 09/05/25 11:24 Room Air 09/05/25 09:55 Room Air 09/05/25 09:50 09/05/25 08:37 09/05/25 07:09 Room Air 09/05/25 03:24 Room Air 09/04/25 22:52 09/04/25 22:33 Room Air 09/04/25 20:50 Room Air 09/04/25 20:50 Room Air 09/04/25 19:49 Room Air 09/04/25 19:00 Room Air 09/04/25 18:45 Room Air 09/04/25 18:30 Room Air 09/04/25 18:30 Room Air 09/04/25 18:15 Room Air 09/04/25 18:15 Room Air 09/04/25 18:01 Room Air 09/04/25 17:45 Room Air 09/04/25 17:30 Room Air 09/04/25 17:30 Room Air 09/04/25 17:18 Room Air 09/04/25 17:05 09/04/25 16:51 09/04/25 16:30 Room Air 09/04/25 16:29 09/04/25 15:51 Room Air 09/04/25 15:44 Room Air Respiratory + respiratory effort normal Pre-Sedation Airway Assessment Smoking Status: Current every day smoker Hx Sleep Apnea: No Hx Difficult Intubation: No Short, Thick Neck: No Thyromental Distance: > or= 3.5 Finger Breadths Oral Cavity: + Dental Abnormalities Mallampati Class: III ASA: ASA3 Procedure Planning Contraindications for Sedation: none Current Medications Reviewed: Yes Notes The planned sedation has been discussed with the patient. Informed Consent was obtained. I have identified the patient, determined the appropriateness of sedation and have assessed the patient immediately prior to the procedure. All medicine(s) and interventions are by my order.
--- NOTE | 2025-09-05 14:56 | Post Anesthesia Assessment ---
Date of Service September 05, 2025 Post Sedation Assessment Vital Signs Temp Pulse Pulse Resp BP BP Pulse Ox 09/05/25 14:25 81 09/05/25 13:52 82 18 175/96 H 92 09/05/25 11:24 97.3 F L 75 18 154/95 H 94 09/05/25 09:55 09/05/25 09:50 148/91 H 09/05/25 08:37 161/104 H 09/05/25 07:09 97.3 F L 79 18 155/105 H 94 09/05/25 05:53 80 09/05/25 03:24 98.1 F 76 16 142/87 H 96 09/04/25 22:52 82 09/04/25 22:33 91 H 16 121/80 95 09/04/25 20:50 09/04/25 20:50 97.9 F 72 18 144/93 H 94 09/04/25 19:49 73 22 132/93 95 09/04/25 19:00 143 H 24 130/101 H 95 09/04/25 18:45 144 H 20 125/104 H 94 09/04/25 18:30 144 H 20 113/82 96 09/04/25 18:30 145 H 24 113/82 94 09/04/25 18:15 145 H 22 126/104 H 93 09/04/25 18:15 144 H 22 126/104 H 94 09/04/25 18:01 144 H 22 134/90 94 09/04/25 17:45 146 H 22 129/104 H 94 09/04/25 17:30 144 H 24 126/100 96 09/04/25 17:30 145 H 24 126/100 95 09/04/25 17:18 144 H 20 129/91 94 09/04/25 17:05 98.1 F 09/04/25 16:51 145 H 09/04/25 16:30 145 H 22 130/101 H 94 09/04/25 16:29 145 H 09/04/25 15:51 145 H 20 130/101 H 95 09/04/25 15:44 99.1 F 144 H 20 125/78 93 O2 Del Method 09/05/25 14:25 09/05/25 13:52 Room Air 09/05/25 11:24 Room Air 09/05/25 09:55 Room Air 09/05/25 09:50 09/05/25 08:37 09/05/25 07:09 Room Air 09/05/25 05:53 09/05/25 03:24 Room Air 09/04/25 22:52 09/04/25 22:33 Room Air 09/04/25 20:50 Room Air 09/04/25 20:50 Room Air 09/04/25 19:49 Room Air 09/04/25 19:00 Room Air 09/04/25 18:45 Room Air 09/04/25 18:30 Room Air 09/04/25 18:30 Room Air 09/04/25 18:15 Room Air 09/04/25 18:15 Room Air 09/04/25 18:01 Room Air 09/04/25 17:45 Room Air 09/04/25 17:30 Room Air 09/04/25 17:30 Room Air 09/04/25 17:18 Room Air 09/04/25 17:05 09/04/25 16:51 09/04/25 16:30 Room Air 09/04/25 16:29 09/04/25 15:51 Room Air 09/04/25 15:44 Room Air Recovery Score Activity: Moves 4 extremities Respiration: Deep Breath/Cough Circulation: +/-20% PreAnes Value Consciousness: Fully Awake Oxygen Saturation: O2 needed for >90% Discharge Sedation Level of Care: Fast Track Phase II
[2025-09-05] MEDS: MIDAZOLAM HCL 1 MG/ML 2ML VIAL ONE (15:04)
--- NOTE | 2025-09-05 15:10 | Cardiac Catheterization ---
[facility] Data: Assistant Casino Shift Manager Cardiac Status Clinical evaluation leading to the procedure CAD Presenation: Sx unlikely to be ischemic Diagnostic Physicians Name: Nathanael Adams MD Closure Device Recommendations: Management Recommendatons Cardiac Cath Procedure Full Procedure Date September 05, 2025 Pre-Procedure Diagnosis Pre-Procedure Diagnosis: Pericardial Disease AUC Score AUC Score: 7 Post-Procedure Diagnosis Post-Procedure Diagnosis: Cardiothoracic Finding (Elevated pericardial pressure) Procedure(s) Performed Procedure(s) Performed: Pericardiocentesis Pool Table Operator Nathanael Adams MD Packaging Mechanic(s) Sam Estimated Blood Loss Estimated Blood Loss: 735 Medication(s) Medication(s): Fentanyl, Lidocaine 1% and Versed Summary of Findings PERICARDIOCENTESIS Indication: Large pericardial effusion with early tamponade findings on echocardiogram Procedure: Moderate sedation with fentanyl/Versed Local anesthesia with 1% lidocaine Under echocardiographic guidance pericardial space approach from subxiphoid position Pericardial space accessed with micropuncture needle Pericardial space position confirmed via injection of agitated saline contrast through micropuncture sheath Opening pericardial pressure 20 mmHg A total of 735 mL of sanguinous fluid removed Post fluid removal no significant residual pericardial effusion on echo Pericardial drain and sheath removed, dressing placed. Summary: 1. Successful ultrasound-guided pericardiocentesis with removal of 735 mL of sanguinous fluid Recommendations: Repeat limited echo in a.m. to assess recurrence of pericardial effusion Follow-up on cell counts, cultures, cytology Start colchicine Hemodynamics Rest Ao:: -- Final Ao: -- LV: -- Recommendations Recommendations: Management Recommendatons Radiation Exposure (mGy) -- Contrast (mls) -- Anesthesia Moderate 4544-1610 Procedural Complication(s) None Disposition PCU I attest to the content of the Intraoperative Record and any orders documented therein. Any exceptions are noted below. [facility] Card Cath Procedure Codes Therapeutic Services & Ancillary Procedure 1: Cardiovascular Tx and Anc Procedures: 97189 Pericardiocentesis w / Imaging Moderate Sedation Procedure 1: Sedation/Anesthesia: 46830 Mod Sedation by the same physician;Init15 Min Child Age 5 & Up PG Care Time/CCT Total # of Minutes Spent Total Time Spent with Patient: Total time spent is greater than 50% in coordination of care (as documented) at patient's floor/unit and/or counseling patient:
--- NOTE | 2025-09-05 15:27 | Hospitalist Progress Note ---
Date of Service September 05, 2025 Assessment & Plan (1) Pericardial effusion with cardiac tamponade: (2) Paroxysmal atrial flutter: (3) Acute bronchitis: (4) CAD (coronary artery disease), [place] coronary artery: (5) HTN (hypertension): (6) Left ventricular hypertrophy: Plan Patient 80-year-old gentleman presented with atrial flutter with RVR which converted to sinus rhythm with rate controlling medications. Subsequent echocardiogram showed large pleural effusion with tamponade physiology. Patient status post pericardiocentesis, tolerated well. Continue postprocedure protocol and care Increase metoprolol 50 mg 2 times daily for better blood pressure control Communication with cardiology, anticipate repeating echocardiogram tomorrow to reevaluate for any residual effusion, start colchicine per cardiac cath recommendations Follow cultures Continue doxycycline for bronchitis Hold anticoagulation until after reeval with echocardiogram Continue to titrate medications for blood pressure control Updated significant other via phone Admission and Anticipated Discharge Date Admission Date: September 04, 2025 Subjective Patient with no further chest pains or shortness of breath. States his cough is about the same. But overall feels a little bit better. Patient did say that about 2 weeks ago he does recall having a significant upper respiratory infection in addition to bronchitis Physical Exam Physical Exam: Constitutional: Alert, nontoxic HEENT: Mucous membranes moist. Lungs: Decreased breath sounds, no rales, no wheezes CV: S1-S2, regular Abdomen: Soft, nontender, nondistended Extremities: No significant edema Neuro: No focal deficits Psych: Cooperative, normal mood Results & Data Results & Data Vital Signs (Past 12 Hours) Vital Signs Temp Pulse Pulse Resp BP Pulse Ox O2 Del Method 09/05/25 15:15 93 H 18 180/103 H 92 Room Air 09/05/25 15:05 92 H 16 186/116 H 92 Room Air 09/05/25 14:25 81 09/05/25 13:52 82 18 175/96 H 92 Room Air 09/05/25 11:24 36.3 C L 75 18 154/95 H 94 Room Air 09/05/25 09:55 Room Air 09/05/25 09:50 148/91 H 09/05/25 08:37 161/104 H 09/05/25 07:09 36.3 C L 79 18 155/105 H 94 Room Air 09/05/25 05:53 80 Diagnostic Findings Reviewed imaging, laboratory and diagnostic studies. Pertinent findings as below. WBCs 8.7 Hemoglobin 11.5 Electrolytes stable Creatinine 0.69 Hemoglobin A1c 6.2% LFTs reviewed, improved Echocardiogram reviewed: Ejection fraction 50 to 55%, large pericardial effusion with suggestion of tamponade on the right side Reviewed cardiac cath report: 735 mL of serosanguineous fluid removed from pericardial sac (5) HTN (hypertension) Hypertension type: primary hypertension Qualified Code(s): I10 - Essential (primary) hypertension
[2025-09-05] MEDS: COLCHICINE 0.6 MG TAB PO ONE (16:27)
[2025-09-05] MEDS: COLCHICINE 0.6 MG TAB PO SCH (20:14)
[2025-09-05] MEDS: METOPROLOL TARTRATE 50 MG TAB PO SCH (20:16)
[2025-09-05] MEDS ORDERED: APIXABAN 5 MG TABLET PO SCH (21:00)
[2025-09-05] MEDS: METOPROLOL TARTRATE 1 MG/ML VIAL IV PRN (21:27)
[2025-09-06] MEDS: METOPROLOL TARTRATE 1 MG/ML VIAL IV STA (05:06)
[2025-09-06 06:31] LABS: Hematocrit (blood only) 37.6 % (42.0-52.0); Hemoglobin 12.7 g/dL (14.0-18.0); Mean Corpuscular Hemoglobin 28.8 pg (25.0-34.0); Mean Corpuscular Volume 85.3 fL (80.0-100.0); Platelet Count 391 K/uL (130-400); RDW Standard Deviation 41.1 fL (36.4-46.3); Red Blood Count 4.41 M/uL (4.70-6.10); White Blood Count 7.91 K/ul (4.8-10.8)
[2025-09-06 06:53] LABS: Anion Gap 9.0 (3-11); Blood Urea Nitrogen 14.0 mg/dl (6-23); Calcium 8.3 mg/dl (8.6-10.3); Carbon Dioxide 22.0 mmol/L (21-32); Chloride 104.0 mmol/L (98-107); Creatinine Clr Calc Pharmacy 116.7 ml/min; Glucose 107.0 mg/dl (70-99(Fasting)); Magnesium 1.7 mg/dl (1.7-2.4); Potassium 3.7 mmol/L (3.5-5.1); Sodium 135.0 mmol/L (136-145)
[2025-09-06] MEDS ORDERED: STAT IV Infusion **Titration per Protocol STA ×2 (07:45→08:20)
[2025-09-06] MEDS: REMOVE NICODERM PATCH SCH (08:11)
[2025-09-06] MEDS ORDERED: 0.2 MICRON FILTER SET 1 EACH IV STA (08:20)
[2025-09-06] MEDS ORDERED: AMIODARONE IV BOLUS & DRIP IV STA (08:20)
[2025-09-06] MEDS ORDERED: Heparin IV Adult Wt-Based Standard w/ INITIAL Bolus Protocol IV STA (08:22)
--- NOTE | 2025-09-06 08:24 | XCELERA ---
[id number] \\[facility]\ISCV_PDF_Reports\[id number]
--- NOTE | 2025-09-06 08:50 | XCELERA ---
[id number] \\[facility]\ISCV_PDF_Reports\[id number]
[2025-09-06] MEDS: POTASSIUM CHLORIDE CRTAB 20 MEQ TABCR PO ONE (09:09)
[2025-09-06] MEDS: AMIODARONE / D5W 150 MG/100 ML BAG IV STA (09:11)
[2025-09-06] MEDS: AMIODARONE / D5W 360 MG/200 ML BAG IV ONE (09:22)
[2025-09-06] MEDS: HEPARIN SOD (PORCINE) 1000 UNIT/ML IV ONE ×2 (09:26→16:58)
[2025-09-06] MEDS: MAGNESIUM SULFATE / D5W 1 GM/100 ML BAG IV SCH (09:30)
[2025-09-06] MEDS: HEPARIN 25000 UNIT/500 ML D5W 25,000 UNITS/500 ML BAG IV SCH (09:30)
--- NOTE | 2025-09-06 09:37 | Cardiology Progress Note ---
Date of Service September 06, 2025 Assessment & Plan (1) Paroxysmal atrial fibrillation: (2) Pericardial effusion with cardiac tamponade: (3) Atrial flutter: (4) CAD (coronary artery disease), [place] coronary artery: (5) HTN (hypertension): (6) Left ventricular hypertrophy: Plan 80-year-old male admitted with atrial flutter and rapid ventricular response. Echocardiogram revealing large circumferential pericardial effusion with tamponade physiology. Patient initially converted to NSR on IV Cardizem. Anticoagulation then held upon findings of tamponade. Patient underwent pericardiocentesis on 09/05 removing 735 ml of sanguinous fluid removed. Patient tolerated procedure. Started on colchicine 0.6 mg BID. Also being treated for acute bronchitis. 09/06/25 Repeat limited echo this morning with small circumferential pericardial effusion. No tamponade. Repeat limited echo tomorrow morning, 09/07 Continue colchicine 0.6 mg BID. No current symptoms. Patient reverted back to atrial fibrillation RVR this morning. No symptoms. Continue metoprolol tartrate 50 mg BID Hospitalist resumed IV Cardizem. Will discontinue and transition to IV amiodarone with bolus and gtt. Resume IV heparin for anticoagulation. Would not give Eliquis at this time given pericardial effusion, if repeat pericardiocentesis is needed. Repeat LFT's (mildly elevated on 09/05 but trending down. Normal TSH on 09/04. May not be a [facility] candidate for amiodarone, but acceptable to use for a short period of time Magnesium low at 1.7 - 2 grams ordered. Goal magnesium level is > 2. Potassium low normal at 3.7 - 20 meq ordered. Goal is 4.0-5 Continue doxycycline for acute bronchitis Consider cardiac MRI for further evaluation of left ventricular hypertrophy as outpatient. Outpatient electrophysiology consultation. Case discussed with Dr. Chowdary I spent a total of 45 minutes on the date of service in preparation, delivery, and documentation of the care provided to this patient, excluding any time spent in the performance of separately billed services. Blessing Kelly PA-C Department of Cardiology, [facility] This chart was completed in part utilizing Speech Voice Recognition Software. Grammatical errors, random word insertions, pronoun errors, and incomplete sentences are an occasional consequence of this system due to software limitations, ambient noise, and hardware issues. Any formal questions or concerns about the content, text, or information contained within the body of this dictation should be directly addressed to the provider for clarification. Admission and Anticipated Discharge Date Admission Date: September 04, 2025 Supervising Physician Co-Signing Physician Notes I have personally performed a history and physical examination on the patient. I have reviewed the advance practitioner's documentation, and I agree with, and take responsibility for the plan of care. 80-year-old male seen examined at the bedside. Converted to atrial fibrillation with rapid ventricular response overnight. IV diltiazem initiated by hospitalist service with improved rate control. Patient underwent pericardiocentesis with removal of 735 cc fluid yesterday. The opening pericardial pressure was 20 mmHg. Repeat limited echocardiogram performed this a.m. demonstrating small circumferential pericardial effusion without evidence of tamponade physiology. Recommend discontinuation of diltiazem infusion in favor of IV amiodarone. Restart intravenous heparin. Continue metoprolol, lisinopril, aspirin, and colchicine as ordered. Repeat limited 2D transthoracic echocardiogram in a.m. 09/07/2025 for reassessment of pericardial effusion. Pedro Chowdary DO, [facility] I spent a total of 35 minutes on the date of service in preparation, delivery, and documentation of the care provided to this patient, excluding any time spent in the performance of separately billed services. Subjective Patient resting in bed comfortably. Denies chest pain or SOB. Reverted back to atrial fibrillation around 4:30 this morning. He denies symptoms of palpitations, dizziness. No orthopnea, PND. Review of Systems Review of Systems: All systems reviewed & are unremarkable except as noted in HPI & below Physical Exam Constitutional: well nourished; no acute distress Respiratory: no respiratory distress, no labored breathing and no retractions Auscultation: + wheezes; no crackles, no rales and no rhonchi Cardiovascular: Rate/Rhythm: + tachycardic and + irregularly irregular Heart Sounds: normal S1 and normal S2; no murmur Extremities: no edema Gastrointestinal (Abdomen): Inspection/Auscultation: abdomen normal to inspection; abdomen not distended Percussion/Palpation: abdomen soft; abdomen nontender, no guarding and abdomen not rigid Neurologic: CN's II-XI intact bilaterally and moves all extremities; no focal motor deficits Results & Data Vital Signs (Past 12 Hours) Vital Signs Temp Pulse Pulse Resp BP BP Pulse Ox 09/06/25 07:15 36.4 C L 127 H 18 131/69 93 09/06/25 05:23 85 135/97 09/06/25 04:47 123 H 138/88 09/06/25 03:05 36.7 C 86 18 147/84 H 95 09/06/25 00:00 87 09/05/25 22:53 36.3 C L 87 20 154/92 H 94 09/05/25 21:47 86 152/85 H O2 Del Method O2 Flow Rate 09/06/25 07:15 Nasal Cannula 1 09/06/25 05:23 09/06/25 04:47 09/06/25 03:05 Nasal Cannula 1 09/06/25 00:00 09/05/25 22:53 Nasal Cannula 2 09/05/25 21:47 Laboratory Results CBC 09/06/25 Range/Units 06:10 WBC 7.91 (4.8-10.8) K/ul RBC 4.41 L (4.70-6.10) M/uL Hgb 12.7 L (14.0-18.0) g/dL Hct 37.6 L (42.0-52.0) % Plt Count 391 (130-400) K/uL Comprehensive Metabolic Panel 09/06/25 Range/Units 06:10 Sodium 135 L (136-145) mmol/L Potassium 3.7 (3.5-5.1) mmol/L Chloride 104 (98-107) mmol/L Carbon Dioxide 22 (21-32) mmol/L BUN 14 (6-23) mg/dl Creatinine 0.53 L (0.6-1.4) mg/dl Glucose 107 H (70-99(Fasting)) mg/dl Calcium 8.3 L (8.6-10.3) mg/dl Intake and Output 09/05/25 09/06/25 09/06/25 22:59 06:59 14:59 Intake Total 270 / 1935.733 100 / 100 Output Total 325 / 1460 800 / 1460 Balance -55 / 475.733 -800 / 475.733 100 / 100 Intake: IV 100 / 100 Amiodarone / D5w 150 mg In 100 100 / 100 ml @ 600 mls/hr IV NOW STA Rx#: [id number] Oral 270 / 510 Output: Urine 325 / 1460 800 / 1460 Other: Weight 83.8 kg Weight Measurement Method Built in [facility] Diagnostic Findings Telemetry reviewed: NSR overnight until around 4:30 AM, patient developed atrial fibrillation with RVR with rates in the 110-130's. EKG reviewed from this morning: Atrial fibrillation with RVR at 133 bmp Voltage criteria for LVH Mild ST depression lateral leads Limited echo report reviewed from today: Small circumferential pericardial effusion No evidence of tamponade Normal inferior venal cava size and collapsibility Compared with prior study, pericardial effusion is smaller, no tamponade. Medications Administered Current Inpatient Medications Acetaminophen (Acetaminophen 500 Mg Tab) 500 mg PO Q6H PRN PRN Reason: fever/pain Stop: 10/04/25 20:12 Aspirin (Aspirin 81 Mg Ectab) 81 mg PO DAILY [facility] Stop: 10/05/25 08:59 Last Admin: 09/06/25 08:10 Dose: 81 mg Colchicine (Colchicine 0.6 Mg Tab) 0.6 mg PO BID [facility] Stop: 10/05/25 20:59 Last Admin: 09/06/25 08:10 Dose: 0.6 mg Doxycycline Hyclate (Doxycycline Hyclate 100 Mg Cap) 100 mg PO BID [facility] Stop: 09/10/25 08:59 Last Admin: 09/06/25 08:10 Dose: 100 mg Amiodarone HCl/Dextrose (Nexterone / D5w) 360 mg in 200 mls @ 33.333 mls/hr IV ONE ONE Stop: 09/06/25 14:29 Last Admin: 09/06/25 09:22 Dose: 1 mg/min, 33.3 mls/hr Amiodarone HCl/Dextrose (Nexterone / D5w) 360 mg in 200 mls @ 16.667 mls/hr IV .Q12H [facility] Stop: 10/06/25 14:29 Heparin Sodium/Dextrose (Heparin 31005 Unit/500 Ml D5w) 25,000 units in 500 mls @ 30 mls/hr IV .[id number] [facility]; Protocol Stop: 10/06/25 08:59 Last Admin: 09/06/25 09:30 Dose: 1,500 units/hr, 30 mls/hr Magnesium Sulfate/Dextrose (Magnesium Sulfate / D5w) 1 gm in 100 mls @ 50 mls/hr IV Q2H [facility] Stop: 09/06/25 12:29 Lisinopril (Lisinopril 10 Mg Tab) 10 mg PO HS [facility] Stop: 10/05/25 20:59 Last Admin: 09/05/25 20:16 Dose: 10 mg Metoprolol Tartrate (Metoprolol Tartrate 50 Mg Tab) 50 mg PO BID [facility] Stop: 10/05/25 20:59 Last Admin: 09/06/25 08:10 Dose: 50 mg Metoprolol Tartrate (Metoprolol Tartrate 1 Mg/Ml Vial) 5 mg IV Q4 PRN PRN Reason: hypertension Stop: 10/05/25 15:59 Last Admin: 09/05/25 21:27 Dose: 5 mg Miscellaneous (Remove Nicoderm Patch) 1 each N/A DAILY@0859 [facility] Stop: 10/06/25 08:58 Last Admin: 09/06/25 08:11 Dose: 1 each Nicotine (Nicotine 14 Mg/24 Hr Patch) 1 patch TD QAM [facility] Stop: 10/05/25 12:59 Last Admin: 09/06/25 08:10 Dose: 1 patch Oxycodone HCl (Oxycodone Hcl Ir 5 Mg Tab (Immediate Release)) 5 mg PO Q4H PRN PRN Reason: Pain Stop: 09/18/25 20:12 Pantoprazole Sodium (Pantoprazole 40 Mg Tab) 40 mg PO [facility] Stop: 10/04/25 20:59 Last Admin: 09/05/25 20:16 Dose: 40 mg PG Care Time/CCT Total # of Minutes Spent Total Time Spent with Patient: Total time spent is greater than 50% in coordination of care (as documented) at patient's floor/unit and/or counseling patient: 45 minutes Coding Level of Care Code 48710 SUB INP/OBS CARE 3/50MIN Diagnoses Paroxysmal atrial fibrillation I48.0 Pericardial effusion with cardiac tamponade I31.39; I31.4 Atrial flutter, unspecified type I48.92 Atrial flutter type: unspecified CAD (coronary artery disease), [place] coronary artery I25.10 Primary hypertension I10 Hypertension type: primary hypertension Left ventricular hypertrophy I51.7 (3) Atrial flutter Atrial flutter type: unspecified Qualified Code(s): I48.92 - Unspecified atrial flutter (5) HTN (hypertension) Hypertension type: primary hypertension Qualified Code(s): I10 - Essential (primary) hypertension
--- NOTE | 2025-09-06 10:24 | Electrocardiogram Report ---
Test Reason : Blood Pressure : */* mmHG Vent. Rate : 73 BPM Atrial Rate : 73 BPM P-R Int : 154 ms QRS Dur : 90 ms QT Int : 370 ms P-R-T Axes : 31 31 64 degrees QTcB Int : 407 ms Normal sinus rhythm Minimal voltage criteria for LVH, may be normal variant Nonspecific T wave abnormality Abnormal ECG When compared with ECG of 04-Sep-2025 16:27, Significant changes have occurred Confirmed by Salvador Rodriguez ([id number]) on 09/06/2025 10:24:42 AM Referred By: REFERRED SELF Confirmed By: Salvador Rodriguez
--- NOTE | 2025-09-06 10:25 | Electrocardiogram Report ---
Test Reason : Blood Pressure : */* mmHG Vent. Rate : 79 BPM Atrial Rate : 79 BPM P-R Int : 168 ms QRS Dur : 94 ms QT Int : 404 ms P-R-T Axes : 44 47 87 degrees QTcB Int : 463 ms Normal sinus rhythm T wave abnormality, consider lateral ischemia Abnormal ECG When compared with ECG of 04-Sep-2025 19:34, (unconfirmed) Inverted T waves have replaced nonspecific T wave abnormality in Lateral leads QT has lengthened Confirmed by Salvador Rodriguez ([id number]) on 09/06/2025 10:25:03 AM Referred By: REFERRED SELF Confirmed By: Salvador Rodriguez
[2025-09-06 10:31] LABS: INR 1.6 (0.9-1.1); Prothrombin Time 16.1 Seconds (9.0-12.0)
--- NOTE | 2025-09-06 10:38 | Electrocardiogram Report ---
Test Reason : Blood Pressure : */* mmHG Vent. Rate : 133 BPM Atrial Rate : * BPM P-R Int : * ms QRS Dur : 94 ms QT Int : 346 ms P-R-T Axes : * 28 139 degrees QTcB Int : 514 ms Atrial fibrillation with rapid ventricular response Minimal voltage criteria for LVH, may be normal variant Septal infarct , age undetermined Abnormal ECG When compared with ECG of 05-Sep-2025 08:59, (unconfirmed) Atrial fibrillation has replaced Sinus rhythm Vent. rate has increased by 54 bpm Septal infarct is now Present ST now depressed in Lateral leads Confirmed by Salvador Rodriguez ([id number]) on 09/06/2025 10:37:38 AM Referred By: REFERRED SELF Confirmed By: Salvador Rodriguez
[2025-09-06 10:52] LABS: Alanine Aminotransferase 97.0 U/L (7-52); Albumin Level 3.2 gm/dl (3.4-5.0); Alkaline Phosphatase 209.0 U/L (34-104); Bilirubin,Total 0.6 mg/dl (0.2-1.0); Total Protein 5.8 gm/dl (6.0-8.3)
[2025-09-06 10:57] LABS: ANTI-Xa, UFH(UnfractionatedHep 0.71 IU/ml (0.3-0.7)
--- NOTE | 2025-09-06 11:10 | Hospitalist Progress Note ---
Date of Service September 06, 2025 Assessment & Plan (1) Pericardial effusion with cardiac tamponade: (2) Paroxysmal atrial flutter: (3) Acute bronchitis: (4) CAD (coronary artery disease), [place] coronary artery: (5) HTN (hypertension): (6) Left ventricular hypertrophy: Plan Patient 80-year-old gentleman initially presented atrial flutter and converted to sinus rhythm. Found to have pericardial effusion and tamponade, status post pericardiocentesis. Converted into atrial fibrillation overnight. Patient had initially responded well to Cardizem. Cardizem bolus and IV drip started early this morning Communication with cardiology updating on patient's new arrhythmia. Reviewed cardiology note. Discontinued Cardizem, started amiodarone and IV heparin. Holding off DOAC while continuing to evaluate pericardial effusion Continue colchicine for pericardial effusion Continue to monitor electrolytes and renal function Bronchitis symptoms are significantly improved Admission and Anticipated Discharge Date Admission Date: September 04, 2025 Subjective Patient denies any palpitations or racing heart sensation. No chest pain or shortness of breath. Telemetry reveals patient flipped into atrial fibrillation overnight Physical Exam Physical Exam: Constitutional: Alert, nontoxic HEENT: Mucous membranes moist. Lungs: Clear to auscultation, decreased, no wheezes rales or rhonchi CV: S1-S2, irregular irregular, tachycardic Abdomen: Soft, nontender, nondistended Extremities: No significant edema Neuro: No focal deficits Psych: Cooperative, normal mood Results & Data Results & Data Vital Signs (Past 12 Hours) Vital Signs Temp Pulse Pulse Resp BP BP Pulse Ox 09/06/25 10:58 117 H 09/06/25 10:41 36.9 C 106 H 18 108/76 94 09/06/25 09:56 09/06/25 07:15 36.4 C L 127 H 18 131/69 93 09/06/25 05:23 85 135/97 09/06/25 04:47 123 H 138/88 09/06/25 03:05 36.7 C 86 18 147/84 H 95 09/06/25 00:00 87 O2 Del Method O2 Flow Rate 09/06/25 10:58 09/06/25 10:41 Nasal Cannula 1 09/06/25 09:56 Room Air 09/06/25 07:15 Nasal Cannula 1 09/06/25 05:23 09/06/25 04:47 09/06/25 03:05 Nasal Cannula 1 09/06/25 00:00 Diagnostic Findings Reviewed imaging, laboratory and diagnostic studies. Pertinent findings as below. Limited echocardiogram: Small pericardial effusion, no evidence of tamponade Personally reviewed EKG: Atrial fibrillation RVR [place] screen negative LFTs reviewed, overall stable/improved Creatinine 0.53 Hemoglobin 12.7 WBC 7.9 Pericardial fluid Gram stain no organisms seen Blood cultures no growth to date (5) HTN (hypertension) Hypertension type: primary hypertension Qualified Code(s): I10 - Essential (primary) hypertension
[2025-09-06] MEDS: AMIODARONE / D5W 360 MG/200 ML BAG IV SCH (14:41)
[2025-09-06 15:59] LABS: ANTI-Xa, UFH(UnfractionatedHep 0.16 IU/ml (0.3-0.7)
[2025-09-06] MEDS: MELATONIN 3 MG TAB PO PRN (23:36)
[2025-09-06 23:52] LABS: ANTI-Xa, UFH(UnfractionatedHep 0.25 IU/ml (0.3-0.7)
[2025-09-07 06:26] LABS: ANTI-Xa, UFH(UnfractionatedHep 0.30 IU/ml (0.3-0.7)
[2025-09-07 06:32] LABS: Anion Gap 7.0 (3-11); Blood Urea Nitrogen 16.0 mg/dl (6-23); Calcium 8.2 mg/dl (8.6-10.3); Carbon Dioxide 26.0 mmol/L (21-32); Chloride 101.0 mmol/L (98-107); Creatinine Clr Calc Pharmacy 99.8 ml/min; Glucose 120.0 mg/dl (70-99(Fasting)); Magnesium 1.9 mg/dl (1.7-2.4); Potassium 4.0 mmol/L (3.5-5.1); Sodium 134.0 mmol/L (136-145)
--- NOTE | 2025-09-07 08:33 | XCELERA ---
[id number] \\ISCV-G[facility]RIELA\ISCV_PDF_[id number]
--- NOTE | 2025-09-07 12:39 | Cardiology Progress Note ---
Date of Service September 07, 2025 Assessment & Plan (1) Paroxysmal atrial fibrillation: (2) Pericardial effusion with cardiac tamponade: (3) Atrial flutter: (4) CAD (coronary artery disease), [place] coronary artery: (5) HTN (hypertension): (6) Left ventricular hypertrophy: Plan 80-year-old male admitted with atrial flutter and rapid ventricular response. Echocardiogram revealing large circumferential pericardial effusion with tamponade physiology. Pericardiocentesis performed 09/05/2025 with removal of 735 cc of serosanguineous fluid. Volume of pericardial fluid has declined per repeat limited echocardiogram today. Patient initially converted to NSR on IV Cardizem, however, reverted to atrial fibrillation 09/06/2025. Recommendations: * Rate control strategy with plans for external direct-current cardioversion after 4 weeks of adequate anticoagulation * Discontinue IV amiodarone * Titrate metoprolol to tartrate to 50 mg 3 times daily * Consider addition of diltiazem pending clinical response to titration of metoprolol * Transition IV heparin to Eliquis this evening * Repeat limited echocardiogram in a.m. 09/08/2025 * Continue colchicine 0.6 mg twice daily * Supplement magnesium and potassium as indicated * Obtain cardiology records from [facility] * Cardiac MRI as outpatient for evaluation left ventricular hypertrophy Pedro Chowdary DO, [facility] Admission and Anticipated Discharge Date Admission Date: September 04, 2025 Subjective 80-year-old male seen examined at the bedside. Remains in atrial fibrillation approximately 100 bpm. Denies chest pain or palpitations. No lightheadedness, or dizziness. Cough and shortness of breath has improved. Supplemental oxygen weaned off. Repeat limited echocardiogram performed this a.m. demonstrating improvement of circumferential pericardial effusion. No evidence of tamponade. Review of Systems Review of Systems: All systems reviewed & are unremarkable except as noted in Subjective Physical Exam Constitutional: well nourished and + ill appearing Respiratory: no respiratory distress, no labored breathing and no retractions Auscultation: no crackles, no rales, no rhonchi and no wheezes Cardiovascular: Rate/Rhythm: regular rate and regular rhythm Heart Sounds: normal S1 and normal S2; no murmur Vessels: femoral pulses present and radial pulses present; no JVD Extremities: no edema Gastrointestinal (Abdomen): Inspection/Auscultation: abdomen normal to inspection; abdomen not distended Percussion/Palpation: abdomen soft; abdomen nontender, no guarding and abdomen not rigid Neurologic: CN's II-XI intact bilaterally and moves all extremities; no focal motor deficits Results & Data Vital Signs (Past 12 Hours) Vital Signs Temp Pulse Pulse Resp BP Pulse Ox O2 Del Method 09/07/25 11:15 36.6 C 95 H 18 114/77 92 Room Air 09/07/25 07:50 104 H 09/07/25 07:20 Room Air 09/07/25 07:11 36.5 C 102 H 18 112/73 94 Room Air 09/07/25 03:30 36.6 C 103 H 18 128/87 94 Room Air Laboratory Results Comprehensive Metabolic Panel 09/07/25 Range/Units 05:41 Sodium 134 L (136-145) mmol/L Potassium 4.0 (3.5-5.1) mmol/L Chloride 101 (98-107) mmol/L Carbon Dioxide 26 (21-32) mmol/L BUN 16 (6-23) mg/dl Creatinine 0.62 (0.6-1.4) mg/dl Glucose 120 H (70-99(Fasting)) mg/dl Calcium 8.2 L (8.6-10.3) mg/dl Intake and Output 09/06/25 09/07/25 09/07/25 22:59 06:59 14:59 Intake Total 324 / 2086.070 636.237 / 2086.070 16.333 / 16.333 Output Total 375 / 575 200 / 575 Balance -51 / 1511.070 436.237 / 1511.070 16.333 / 16.333 Intake: IV 224 / 1346.070 636.237 / 1346.070 16.333 / 16.333 Amiodarone / D5w 360 mg In 200 174.237 / 174.237 ml @ 0.5 MG/MIN 16.667 mls/hr IV .Q12H [facility] Rx#:[id number] Heparin 93679 Unit/500 ml D5w 224 / 686.00 462.00 / 686.00 16.333 / 16.333 25,000 units In 500 ml @ 1,750 UNITS/HR 35 mls/hr IV .[id number] [facility] Rx#:[id number] Oral 100 / 740 Output: Urine 375 / 575 200 / 575 Other: Weight 84.7 kg Weight Measurement Method Built in [facility] PG Care Time/CCT Total # of Minutes Spent Total Time Spent with Patient: Total time spent is greater than 50% in coordination of care (as documented) at patient's floor/unit and/or counseling patient: Coding Level of Care Code 10472 SUB INP/OBS CARE 3/50MIN Diagnoses Paroxysmal atrial fibrillation I48.0 Pericardial effusion with cardiac tamponade I31.39; I31.4 Atrial flutter, unspecified type I48.92 Atrial flutter type: unspecified CAD (coronary artery disease), [place] coronary artery I25.10 Primary hypertension I10 Hypertension type: primary hypertension Left ventricular hypertrophy I51.7 (3) Atrial flutter Atrial flutter type: unspecified Qualified Code(s): I48.92 - Unspecified atrial flutter (5) HTN (hypertension) Hypertension type: primary hypertension Qualified Code(s): I10 - Essential (primary) hypertension
[2025-09-07] MEDS: MAGNESIUM SULFATE / D5W 1 GM/100 ML BAG IV ONE (13:03)
--- NOTE | 2025-09-07 13:03 | Electrocardiogram Report ---
Test Reason : Blood Pressure : */* mmHG Vent. Rate : 105 BPM Atrial Rate : * BPM P-R Int : * ms QRS Dur : 96 ms QT Int : 364 ms P-R-T Axes : * 8 146 degrees QTcB Int : 481 ms Atrial fibrillation with rapid ventricular response Minimal voltage criteria for LVH, may be normal variant Inferior infarct , age undetermined QTcB >= 480 msec Abnormal ECG When compared with ECG of 06-Sep-2025 07:45, Criteria for Septal infarct are no longer Present Inferior infarct is now Present T wave inversion now evident in Anterior leads Confirmed by Salvador Rodriguez ([id number]) on 09/07/2025 1:03:04 PM Referred By: REFERRED SELF Confirmed By: Salvador Rodriguez
[2025-09-07] MEDS: METOPROLOL TARTRATE 50 MG TAB PO SCH (13:05)
--- NOTE | 2025-09-07 13:07 | Hospitalist Progress Note ---
Date of Service September 07, 2025 Assessment & Plan (1) Pericardial effusion with cardiac tamponade: (2) Paroxysmal atrial flutter: (3) Acute bronchitis: (4) CAD (coronary artery disease), [place] coronary artery: (5) HTN (hypertension): (6) Left ventricular hypertrophy: Plan Patient with ongoing atrial fibrillation with mild rapid ventricular response, did not convert with IV amiodarone. Communication with cardiology. Plan for rate control. [facility]rol[facility] 3 times [facility] Consider addition of diltiazem if increase metoprolol continues with rapid ventricular sponsor Continue colchicine for presumed pericarditis and pericardial effusion Daily echocardiogram as directed by cardiology to follow pericardial effusion Complete course of doxycycline for acute bronchitis Phone conversation update to [place] patient's significant other Admission and Anticipated Discharge Date Admission Date: September 04, 2025 Subjective Patient denies any chest pain or shortness of breath. Cannot feel any palpitations. Eager to get home. Physical Exam Physical Exam: Constitutional: Alert, nontoxic HEENT: Mucous membranes moist. Lungs: Clear to auscultation, decreased, no wheezes rales or rhonchi CV: S1-S2, irregular, tachycardic Abdomen: Soft, nontender, nondistended Extremities: No significant edema Neuro: No focal deficits Psych: Cooperative, normal mood Results & Data Results & Data Vital Signs (Past 12 Hours) Vital Signs Temp Pulse Pulse Resp BP Pulse Ox O2 Del Method 09/07/25 11:15 36.6 C 95 H 18 114/77 92 Room Air 09/07/25 07:50 104 H 09/07/25 07:20 Room Air 09/07/25 07:11 36.5 C 102 H 18 112/73 94 Room Air 09/07/25 03:30 36.6 C 103 H 18 128/87 94 Room Air Diagnostic Findings Reviewed imaging, laboratory and diagnostic studies. Pertinent findings as below. Sodium 134 Potassium 4.0 Magnesium 1.9 Creatinine 0.62 Echocardiogram limited: Small pericardial effusion, no evidence of tamponade, smaller when compared to previous Personally reviewed EKG, persistent atrial fibrillation Cultures no growth Pathology pericardial fluid: no malignant cells (5) HTN (hypertension) Hypertension type: primary hypertension Qualified Code(s): I10 - Essential (primary) hypertension
[2025-09-07] MEDS ORDERED: ACETAMINOPHEN 325 MG TAB PO PRN (13:14)
--- NOTE | 2025-09-07 13:56 | XRay Report ---
XR chest 2V PA/lateral CLINICAL HISTORY: bronchitis COMPARISON STUDY: 09/04/2025 FINDINGS: The heart is enlarged. There is a [id number] right pleural effusion and small left p leural effusion. There are right basilar airspace opacities, likely atelectatic although anxious proc esses could appear similar. There is mild prominence of central pulmonary vessels. IMPRESSION: Cardiomegaly and bilateral pleural effusions right greater than left. Mild pulmonary vas cular prominence. ACT 112: Negative or not required by law. Electronically signed by: Merlin Yo M.D. 09/07/2025 1:54 PM
[2025-09-07] MEDS: APIXABAN 5 MG TABLET PO SCH (19:46)
[2025-09-08 02:33] LABS: Fluid Basophil % 0 %; Fluid Eosinophil % 0 %; Fluid Lymphocytes % 60 %; Fluid Mesothelial % 0 %; Fluid Monocyte/Macrophage % 16 %; Fluid Neutrophil % 24 %
--- NOTE | 2025-09-08 09:32 | XCELERA ---
[id number] \\ISCV[facility]\ISCV_PDF_[id number]
--- NOTE | 2025-09-08 10:49 | Cardiology Progress Note ---
Date of Service September 08, 2025 Assessment & Plan (1) Paroxysmal atrial fibrillation: (2) Pericardial effusion with cardiac tamponade: (3) Atrial flutter: (4) CAD (coronary artery disease), [place] coronary artery: (5) HTN (hypertension): (6) Left ventricular hypertrophy: Plan 80-year-old male admitted with atrial flutter and rapid ventricular response. Echocardiogram revealing large circumferential pericardial effusion with tamponade physiology. Pericardiocentesis performed 09/05/2025 with removal of 735 cc of serosanguineous fluid. Volume of pericardial fluid has declined per repeat limited echocardiogram Patient initially converted to NSR on IV Cardizem, however, reverted to atrial fibrillation 09/06/2025. 09/08/2025 Plan: -Plan is to continue with Rate control Strategy. Metoprolol tartrate 50mg PO TID, and Diltiazem 60mg PO TID -Amiodarone was discontinued yesterday. -Plans to pursue a external DCCV after a minimum of 4 weeks of oral anticoagulation -Continue Eliquis -limited echo this morning -Reduce colchicine to 0.6mg PO daily -Patient currently follows with Dr. Mccoy, [facility]--will need to obtain records prior to follow up. -Cardiac MRI as outpatient to further evaluate LVH. -Continue Antibiotics per Primary team Case has been discussed with Dr. Chowdary. Further recommendations regarding plan of care as per his assessment. I spent a total of 30 minutes on the date of service in preparation, delivery, documentation of the care provided to the patient excluding any time spent in the performance of separately billed services. RAKAN Hayden [facility] Admission and Anticipated Discharge Date Admission Date: September 04, 2025 Supervising Physician Co-Signing Physician Notes I have personally performed a history and physical examination on the patient. I have reviewed the advance practitioner's documentation, and I agree with, and take responsibility for the plan of care. 80-year-old male seen examined at the bedside. Repeat echocardiogram demonstrating trivial circumferential pericardial effusion without tamponade. Remains in atrial fibrillation on telemetry. Heart rates 100 to 110 bpm. Denies palpitations or chest discomfort. Low-dose diltiazem added last evening, 30 mg 3 times daily. Metoprolol titrated to 50 mg 3 times daily yesterday as well. Transition from IV heparin to Eliquis. Recommend titration of diltiazem to 60 mg 3 times daily. Additional 30 mg oral diltiazem this a.m. Reduce colchicine to 0.6 mg once daily due to addition of diltiazem. Continue metoprolol 50 mg 3 times daily. He can be transition to succinate formulation at the time of discharge. Continue oral anticoagulation with Eliquis. Continue telemetry monitoring. Pedro Chowdary DO, [facility] I spent a total of 35 minutes on the date of service in preparation, delivery, and documentation of the care provided to this patient, excluding any time spent in the performance of separately billed services. Subjective 09/08/2025: Patient seen and examined in follow up today. Feeling well from a cardiac perspective. Offers no acute cardiac concerns. Denies chest pain, pressure or palpitations. Mild dyspnea with exertion, but feels it is significantly improved since time of admission. Labs, vitals, diagnostics, telemetry and documentation reviewed. Telemetry reviewed showing A-fib rates 90-118bpm. Review of Systems Review of Systems: All systems reviewed & are unremarkable except as noted in HPI & below Physical Exam Constitutional: well developed and well nourished; no acute distress Neck: normal visual inspection and trachea midline Respiratory: normal respiratory effort, lungs clear to auscultation Cardiovascular: Rate/Rhythm: + irregularly irregular Heart Sounds: normal S1 and normal S2; no murmur Vessels: dorsalis pedis pulses present; no JVD Extremities: no edema Skin: no rashes, warm and dry Psychiatric: A+Ox3, euthymic affect Results & Data Vital Signs (Past 12 Hours) Vital Signs Temp Pulse Pulse Resp BP BP Pulse Ox 09/08/25 08:56 107 H 09/08/25 07:47 36.4 C L 103 H 19 120/86 96 09/08/25 07:15 09/08/25 04:24 36.2 C L 107 H 16 117/82 94 09/07/25 22:53 36.8 C 85 16 118/76 94 O2 Del Method 09/08/25 08:56 09/08/25 07:47 Room Air 09/08/25 07:15 Room Air 09/08/25 04:24 Room Air 09/07/25 22:53 Room Air Laboratory Results Intake and Output 09/07/25 09/08/25 09/08/25 22:59 06:59 14:59 Intake Total 1060 / 1669.250 Output Total 900 / 1300 Balance 1060 / 369.250 -900 / 369.250 Intake: Oral 1060 / 1060 Output: Urine 900 / 1300 Other: # Unmeasured Voids 2 Weight 83.6 kg PG Care Time/CCT Total # of Minutes Spent Total Time Spent with Patient: Total time spent is greater than 50% in coordination of care (as documented) at patient's floor/unit and/or counseling patient: Coding Level of Care Code 55853 SUB INP/OBS CARE 3/50MIN Diagnoses Paroxysmal atrial fibrillation I48.0 Pericardial effusion with cardiac tamponade I31.39; I31.4 Atrial flutter, unspecified type I48.92 Atrial flutter type: unspecified CAD (coronary artery disease), [place] coronary artery I25.10 Primary hypertension I10 Hypertension type: primary hypertension Left ventricular hypertrophy I51.7 Time Spent (min) 30 (3) Atrial flutter Atrial flutter type: unspecified Qualified Code(s): I48.92 - Unspecified atrial flutter (5) HTN (hypertension) Hypertension type: primary hypertension Qualified Code(s): I10 - Essential (primary) hypertension
--- NOTE | 2025-09-08 15:09 | Hospitalist Progress Note ---
Date of Service September 08, 2025 Assessment & Plan (1) Pericardial effusion with cardiac tamponade: (2) Paroxysmal atrial flutter: (3) Acute bronchitis: (4) CAD (coronary artery disease), [place] coronary artery: (5) HTN (hypertension): (6) Left ventricular hypertrophy: Plan Patient 80-year-old gentleman presented with atrial flutter, briefly converted to sinus rhythm. Echo showed large pericardial effusion and underwent pericardiocentesis. Postprocedure patient went back in atrial fibrillation. Rates have been difficult to control. Communication with cardiology, Cardizem started last evening, increased dose today. Rates have become much better controlled with increased dose of Cardizem. Continue to monitor for rate control versus conversion to not sinus rhythm Anticipate if rates remain controlled will transition to long-acting beta- britton and Cardizem tomorrow and discharge home Continue Eliquis Colchicine dose decreased to daily, follow-up echocardiogram shows trivial residual effusion. Complete course of antibiotics and symptomatic care for bronchitis Admission and Anticipated Discharge Date Admission Date: September 04, 2025 Subjective Patient denies any chest pain or shortness of breath. Slept well. Good appetite. Understands rates have been difficult to control Physical Exam Physical Exam: Constitutional: Alert HEENT: Mucous membranes moist. Lungs: Clear to auscultation, decreased, no wheezes rales or rhonchi CV: S1-S2, irregular irregular Abdomen: Soft, nontender, nondistended Extremities: No significant edema Neuro: No focal deficits Psych: Cooperative, normal mood Results & Data Results & Data Vital Signs (Past 12 Hours) Vital Signs Temp Pulse Pulse Resp BP BP Pulse Ox 09/08/25 14:44 36.7 C 86 18 125/81 91 09/08/25 14:25 87 09/08/25 14:22 90 16 119/75 09/08/25 10:50 36.4 C L 69 19 99/63 L 98 09/08/25 08:56 107 H 09/08/25 07:47 36.4 C L 103 H 19 120/86 96 09/08/25 07:15 09/08/25 04:24 36.2 C L 107 H 16 117/82 94 O2 Del Method 09/08/25 14:44 Room Air 09/08/25 14:25 09/08/25 14:22 09/08/25 10:50 Room Air 09/08/25 08:56 09/08/25 07:47 Room Air 09/08/25 07:15 Room Air 09/08/25 04:24 Room Air Diagnostic Findings Reviewed imaging, laboratory and diagnostic studies. Pertinent findings as below. (5) HTN (hypertension) Hypertension type: primary hypertension Qualified Code(s): I10 - Essential (primary) hypertension
[2025-09-09 08:32] LABS: Anion Gap 7.0 (3-11); Blood Urea Nitrogen 16.0 mg/dl (6-23); Calcium 8.8 mg/dl (8.6-10.3); Carbon Dioxide 27.0 mmol/L (21-32); Chloride 102.0 mmol/L (98-107); Creatinine Clr Calc Pharmacy 89.6 ml/min; Glucose 105.0 mg/dl (70-99(Fasting)); Potassium 3.9 mmol/L (3.5-5.1); Sodium 136.0 mmol/L (136-145)
--- NOTE | 2025-09-09 08:51 | Cardiology Progress Note ---
Date of Service September 09, 2025 Assessment & Plan (1) Paroxysmal atrial fibrillation: (2) Pericardial effusion with cardiac tamponade: (3) Atrial flutter: (4) CAD (coronary artery disease), [place] coronary artery: (5) HTN (hypertension): (6) Left ventricular hypertrophy: Plan 80-year-old male admitted with atrial flutter and rapid ventricular response. Echocardiogram revealing large circumferential pericardial effusion with tamponade physiology. Pericardiocentesis performed 09/05/2025 with removal of 735 cc of serosanguineous fluid. Volume of pericardial fluid has declined per repeat limited echocardiogram Patient initially converted to NSR on IV Cardizem, however, reverted to atrial fibrillation 09/06/2025. 09/09/2025 Plan: -Patient continues to show clinical improvement from a cardiac perspective. -Plan is to continue with Rate control Strategy. Metoprolol tartrate 50mg PO TID, and Diltiazem 60mg PO TID -Plans to pursue a external DCCV after a minimum of 4 weeks of oral anticoagulation -Continue Eliquis 5mg PO BID -Colchicine 0.6mg PO daily -Patient currently follows with Dr. Mccoy, [facility], he would like to transfer his care local. Will need to obtain records prior to follow up. -Cardiac MRI as outpatient to further evaluate LVH. -Continue Antibiotics per Primary team -OP [facility] cardiology office has been contacted to assist in arranging follow up when patient is appropriate for discharge. Patient is aware. Case has been discussed with Dr. Chowdary. Further recommendations regarding plan of care as per his assessment. I spent a total of 30 minutes on the date of service in preparation, delivery, documentation of the care provided to the patient excluding any time spent in the performance of separately billed services. RAKAN Hayden [facility] Cardiology [facility] Admission and Anticipated Discharge Date Admission Date: September 04, 2025 Supervising Physician Co-Signing Physician Notes I have personally performed a history and physical examination on the patient. I have reviewed the advance practitioner's documentation, and I agree with, and take responsibility for the plan of care. 80-year-old male seen examined at the bedside. Repeat echocardiogram 09/08/2025 demonstrating trivial circumferential pericardial effusion without tamponade. Remains in atrial fibrillation on telemetry. Heart rates 80-90s BPM. Denies palpitations or chest discomfort. Feeling better today. Requesting discharge. Discontinue short acting metoprolol and diltiazem. I will administer 50 mg of oral Toprol-XL and 120 mg of oral diltiazem CD now. He can take additional 50 mg of Toprol-XL this evening at home. Hold lisinopril due to borderline resting hypotension. Will consider restarting during outpatient evaluation. Beginning tomorrow, patient will take Toprol-XL 100 mg in the morning, 50 mg in the evening along with Cardizem CD 180 mg daily. Continue anticoagulation with apixaban, low-dose aspirin due to history of CAD/stenting, and colchicine 0.6 mg daily for treatment of pericarditis. Plan external direct-current cardioversion after 4 weeks of adequate anticoagulation. Close cardiology follow-up in 1 to 2 weeks. Pedro Chowdary DO, [facility] I spent a total of 35 minutes on the date of service in preparation, delivery, and documentation of the care provided to this patient, excluding any time spent in the performance of separately billed services. Subjective 09/09/2025: Patient seen and examined in follow up today. Feeling well from a cardiac perspective. Offer no acute concerns. Labs, vitals, diagnostics, telemetry and documentation reviewed. Telemetry reviewed showing A-fib rates 70-90's, Brief tachycardic episode this morning with rates 130-150bpm with activity, resolved quickly. Review of Systems Review of Systems: All systems reviewed & are unremarkable except as noted in HPI & below Physical Exam Constitutional: well developed and well nourished; no acute distress Neck: normal visual inspection and trachea midline Respiratory: normal respiratory effort, lungs clear to auscultation Cardiovascular: Rate/Rhythm: + irregularly irregular Heart Sounds: normal S1 and normal S2; no murmur Vessels: dorsalis pedis pulses present; no JVD Extremities: no edema Skin: no rashes, warm and dry Psychiatric: A+Ox3, euthymic affect Results & Data Vital Signs (Past 12 Hours) Vital Signs Temp Pulse Pulse Resp BP Pulse Ox O2 Del Method 09/09/25 08:07 87 09/09/25 07:19 36.6 C 99 H 18 148/95 H 94 Room Air 09/09/25 03:29 36.6 C 89 18 133/88 95 Room Air 09/08/25 22:53 36.6 C 76 18 121/78 93 Room Air Laboratory Results Comprehensive Metabolic Panel 09/09/25 Range/Units 07:48 Sodium 136 (136-145) mmol/L Potassium 3.9 (3.5-5.1) mmol/L Chloride 102 (98-107) mmol/L Carbon Dioxide 27 (21-32) mmol/L BUN 16 (6-23) mg/dl Creatinine 0.69 (0.6-1.4) mg/dl Glucose 105 H (70-99(Fasting)) mg/dl Calcium 8.8 (8.6-10.3) mg/dl Intake and Output 09/08/25 09/09/25 09/09/25 22:59 06:59 14:59 Intake Total 150 / 765 100 / 765 Output Total 450 / 876 426 / 876 Balance -300 / -111 -326 / -111 Intake: Oral 150 / 765 100 / 765 Output: Urine 450 / 875 425 / 875 # Bowel Movements Other: Weight 77.8 kg Weight Measurement Method Built in [facility] PG Care Time/CCT Total # of Minutes Spent Total Time Spent with Patient: Total time spent is greater than 50% in coordination of care (as documented) at patient's floor/unit and/or counseling patient: Coding Level of Care Code 36636 SUB INP/OBS CARE 3/50MIN Diagnoses Paroxysmal atrial fibrillation I48.0 Pericardial effusion with cardiac tamponade I31.39; I31.4 Atrial flutter, unspecified type I48.92 Atrial flutter type: unspecified CAD (coronary artery disease), [place] coronary artery I25.10 Primary hypertension I10 Hypertension type: primary hypertension Left ventricular hypertrophy I51.7 Time Spent (min) 30 (3) Atrial flutter Atrial flutter type: unspecified Qualified Code(s): I48.92 - Unspecified atrial flutter (5) HTN (hypertension) Hypertension type: primary hypertension Qualified Code(s): I10 - Essential (primary) hypertension
[2025-09-09] MEDS: COLCHICINE 0.6 MG TAB PO SCH (08:58)
--- NOTE | 2025-09-09 14:53 | Discharge Summary ---
Date of Service September 09, 2025 Admission HPI Per Admitting Provider History obtained from patient and records. Medical history significant for CAD status post stent, hypertension, hyperlipidemia, GERD, ongoing tobacco abuse. Patient not feeling well for about a week. Cough symptoms today are productive of junky green sputum. Denies aspiration. Malaise, chills, weakness at home. Achy headache symptoms from coughing. Denies abdominal pain or bleeding concerns. Not sure about sick contacts. Patient seen at urgent care center and prescribed Augmentin for possible bronchitis. Patient came to ER for worsening symptoms associated with shortness of breath. Denies chest pain, palpitations. Compliant with home medications. Denies OTC decongestant intake. Patient noted to be in rapid atrial flutter upon arrival at the ER, heart rate 140s. No prior episodes as per patient. IV Cardizem bolus followed by infusion initiated at the ER. IV heparin initiated at the ER. Patient subsequently converted to NSR. Medical History as above Surgical History : Skin cancer surgery, hernia repair, ankle fracture surgery Family History : DM Personal/Social history : 1 pack daily, occasional EtOH intake, [employer] Admission Exam Per Admitting Provider GENERAL: Comfortable, pleasant, no respiratory distress SKIN: Normal color, warm HEENT: Towel over patient's forehead, pink palpebral conjunctivae, no ptosis, dry buccal mucosa NECK : Supple, no tenderness CHEST : Decreased breath sounds, no tenderness HEART : RRR, no obvious murmurs ABDOMEN: no distention, nontender EXTREMITIES : No LE swelling/tenderness, palpable pulses, no other conspicuous deformities noted NEUROLOGIC : Coherent, no facial asymmetry, no other gross focality Principal Diagnosis Paroxysmal atrial flutter, converted to sinus rhythm cardiac tamponade s/p pericardiocentesis Hypertension uncontrolled Acute bronchitis Prediabetes Discharge Exam Constitutional: Alert HEENT: Mucous membranes moist. Lungs: Clear to auscultation, decreased, no wheezes rales or rhonchi CV: S1-S2, irregular irregular Abdomen: Soft, nontender, nondistended Extremities: No significant edema Neuro: No focal deficits Psych: Cooperative, normal mood Discharge Data Allergies Allergy/AdvReac Type Severity Reaction Status Date / Time No Known Allergies Allergy Unverified 09/04/25 19:39 Consultations 09/04/25 19:15 ED Decision to Admit Stat 09/04/25 20:59 Consult Cardiology Routine Procedures Performed Operation Date: 09/05/25 13:45 Actual Procedures p Pericardiocentesis Initial - Nathanael Adams MD Ordered Studies 09/05/25 13:59 CL Cath Imgs for PACS use only Routine Hospital Course (1) Pericardial effusion with cardiac tamponade: (2) Paroxysmal atrial flutter: (3) Acute bronchitis: (4) CAD (coronary artery disease), [place] coronary artery: (5) HTN (hypertension): (6) Left ventricular hypertrophy: Plan Patient is a 80-year-old gentleman who presented with atrial flutter, briefly converted to sinus rhythm. Echo showed large pericardial effusion and underwent pericardiocentesis. Postprocedure patient went back in atrial fibrillation. Rates have been difficult to control. Cardiology consulted - Repeat echocardiogram 09/08/2025 demonstrating trivial circumferential pericardial effusion without tamponade. Hold lisinopril due to borderline resting hypotension. Will consider restarting during outpatient evaluation. Beginning tomorrow, patient will take Toprol-XL 100 mg in the morning, 50 mg in the evening along with Cardizem CD 180 mg daily. Continue anticoagulation with apixaban, low-dose aspirin due to history of CAD/stenting, and colchicine 0.6 mg daily for treatment of pericarditis. Plan external direct-current cardioversion after 4 weeks of adequate anticoagulation. Close cardiology follow-up in 1 to 2 weeks. Complete course of antibiotics and symptomatic care for bronchitis Total Time Total Time Spent Total Time Spent (In Minutes): 40 Discharge Plan Discharge Items Patient Disposition: Home - Self-Care Reason For Visit: AF Discharge Diagnosis: Paroxysmal atrial flutter, converted to sinus rhythm cardiac tamponade s/p pericardiocentesis Hypertension uncontrolled Acute bronchitis Prediabetes Condition on Discharge: Good Activity: As commented below Activity Comment: Increase activity as tolerated Non-emergency contact: Primary Care Provider and Development Team Lead Call non-emergency contact if: your symptoms worsen Follow-up/Referrals: Umu Jenkins PA-C [Primary Care Provider] - 09/12/25 11:30 am () Pedro Chowdary DO [Development Team Lead] - Diet: Carb Consistent or DM2 and Low Sodium (2gm) Addtl Attending Provider Instructions: Follow-up with cardiology as coordinated through their office Follow-up with your PCP. Your sugars were elevated and should be monitored through your PCPs office and recommendations. Beginning tomorrow, take Toprol-XL 100 mg in the morning, 50 mg in the evening along with Cardizem CD 180 mg daily. Continue anticoagulation with apixaban, low-dose aspirin, and colchicine 0.6 mg daily for treatment of pericarditis. Plan external direct-current cardioversion after 4 weeks of adequate anticoagulation. Hold lisinopril due to borderline resting hypotension. Will consider restarting during outpatient evaluation. Close cardiology follow-up in 1 to 2 weeks. Pending Studies at Discharge: No Stand-Alone Forms: My [facility] [employer], Smoking Cessation Medications and DC Order Prescriptions: New doxycycline hyclate 100 mg Capsule 100 mg PO BID 2 Days Qty: 4 0RF Eliquis 5 mg Tablet 5 mg PO BID Qty: 60 0RF colchicine [Colcrys] 0.6 mg Tablet 0.6 mg PO DAILY Qty: 30 0RF metoprolol succinate [Toprol XL] 100 mg tablet extended release 24 hr 100 mg PO QAM Qty: 30 0RF metoprolol succinate [Toprol XL] 50 mg tablet extended release 24 hr 50 mg PO HS Qty: 30 0RF diltiazem HCl [Cardizem CD] 180 mg capsule,extended release 24hr 180 mg PO DAILY Qty: 30 0RF aspirin 81 mg Tablet,Delayed Release (Dr/Ec) 81 mg PO DAILY Qty: 30 0RF Continued pantoprazole 40 mg tablet,delayed release (DR/EC) 40 mg PO HS rosuvastatin 20 mg tablet 20 mg PO HS albuterol sulfate 90 mcg/actuation HFA aerosol inhaler 1 - 2 puff INHALATION Q4 PRN (Reason: as directed) Held indomethacin 50 mg capsule 50 mg PO TID PRN (Reason: gout attack) Hold Instructions: Resume on 09/12/25. discuss w/ primary care doctor/ rim roller setter when ok to take again Rx Instructions: take for 5 days for each gout attack Discontinued amoxicillin-pot clavulanate 875-125 mg tablet 1 tab PO Q12 Rx Instructions: ordered 08/28/25 to take for 10 days lisinopril 20 mg tablet 20 mg PO HS Discharge Orders: Discharge Order (Routine); Ordered 09/09/25 Ordered By: Clyde Peterson/Other Patient Handouts: Prediabetes, 5 Steps for Eating Healthier Admission Data Admit Date/Time: 09/04/25 19:30 Attending Provider: Clyde Partida Admit Provider: Jaime Stover Primary Care Provider: Uum Jenkins Other Providers: Jaime Stover; Pedro Chowdary; Paulo Duenas
[2025-09-09 15:06] VITALS: PULSE 89; RESP 18; TEMP 98.1; O2SAT 94
[2025-09-09] MEDS: METOPROLOL SUCC 50MG EXT REL TAB PO STA (15:11)
[2025-09-09 15:16] VITALS: BP 117/82
--- NOTE | 2025-09-09 15:21 | Electrocardiogram Report ---
Test Reason : Blood Pressure : */* mmHG Vent. Rate : 99 BPM Atrial Rate : * BPM P-R Int : * ms QRS Dur : 96 ms QT Int : 374 ms P-R-T Axes : * 32 -78 degrees QTcB Int : 479 ms Atrial fibrillation Left ventricular hypertrophy with lateral ST T abnormality Septal infarct , age undetermined Possible Inferior infarct (cited on or before 07-Sep-2025) Abnormal ECG When compared with ECG of 07-Sep-2025 08:33, Septal infarct is now Present Inferior leads Confirmed by Prabha Blackburn (Jesus) on 09/09/2025 3:20:43 PM Referred By: REFERRED SELF Confirmed By: Prabha Blackburn
== END 2025-09-09 17:19 | disposition home or self-care (01) | DRG 315 ==
LOC: ED 15:33 → 2S 19:30 → SUATTDRO 19:30 → 2S 20:18